=== PATIENT | female | born 1985 | race Caucasian/White ===

== ENCOUNTER 2017-09-19 15:25 | Emergency (ER) | payer OTHER ==
[~2017-09-19 15:25] MED LIST: ALBUAER3 INH; BUSP10TA PO; CETI1TAB PO; CITA40TA4 PO; IMIT100T PO; NAPR500T2 PO; PANT20TA2 PO; PRED20 PO; RANI300T PO; SERO25TA PO; TOPA50TA7 PO; ZAFI1TAB PO
[2017-09-19 15:35] VITALS: BP 126/81; PULSE 98; RESP 20; TEMP 96.5; O2SAT 100
[2017-09-19 15:47] VITALS: BP 126/81; PULSE 98; RESP 18; TEMP 96.5; O2SAT 100
[2017-09-19] MEDS ORDERED: SODIUM CHLOR 0.9% 1000 ML INJ 1,000 ML IV ONE (16:24)
[2017-09-19] MEDS ORDERED: SODIUM CHLORIDE 0.9% FLUSH 10 ML FLUSH IVF PRN (16:30)
[2017-09-19 17:03] VITALS: RESP 18; O2SAT 100
--- NOTE | 2017-09-19 17:13 | RADRPT ---
EXAM DATE/TIME: 09/19/2017 16:53 [place] COMPARISON: No previous studies available for comparison. INDICATIONS : Seizure with dizziness and cephalgia. RADIATION DOSE: 35.45 CTDIvol (mGy) MEDICAL HISTORY : Seizures. Cervical cancer. SURGICAL HISTORY : Hysterectomy. Tubal ligation. ENCOUNTER: Initial ACUITY: 1 day PAIN SCALE: 5/10 LOCATION: cranial TECHNIQUE: Multiple contiguous axial images were obtained of the head. Using automated exposure control and adj ustment of the mA and/or kV according to patient size, radiation dose was kept as low as reasonably a chievable to obtain optimal diagnostic quality images. DICOM format image data is available electro nically for review and comparison. FINDINGS: CEREBRUM: The ventricles are normal for age. No evidence of midline shift, mass lesion, hemorrhage or acute in farction. No extra-axial fluid collections are seen. POSTERIOR FOSSA: The cerebellum and brainstem are intact. The 4th ventricle is midline. The cerebellopontine angle i s unremarkable. EXTRACRANIAL: The visualized portion of the orbits is intact. SKULL: The calvaria is intact. No evidence of skull fracture. CONCLUSION: 1. No acute cardiopulmonary findings. Sorin Treviño MD on September 19, 2017 at 17:11 Board Certified Radiologist. This report was verified electronically.
[2017-09-19] MEDS ORDERED: LORazepam 2 MG/ML VIAL IV PUSH ONE (17:15)
[2017-09-19 17:20] LABS: AUTOMATED NEUTROPHIL # 7.5 TH/MM3 (1.8-7.7); BASOPHIL % 0.2 % (0.0-2.0); EOSINOPHIL % 0.3 % (0.0-4.0); HEMATOCRIT 31.5 % (35.0-46.0); HEMOGLOBIN 9.9 GM/DL (11.6-15.3); LYMPHOCYTE # 0.9 TH/MM3 (1.0-4.8); MEAN CELL VOLUME 77.5 FL (80.0-100.0); MEAN CORPUSCULAR HEMOGLOBIN 24.4 PG (27.0-34.0); MEAN CORPUSCULAR HGB CONC 31.5 % (32.0-36.0); MONO % 4.6 % (0.0-8.0); MONOCYTE # 0.4 TH/MM3 (0-0.9); NEUT % 84.9 % (16.0-70.0); PLATELET COUNT 186 TH/MM3 (150-450); RED BLOOD COUNT 4.06 MIL/MM3 (4.00-5.30); RED CELL DISTRIBUTION WIDTH 17.7 % (11.6-17.2); WHITE BLOOD COUNT 8.9 TH/MM3 (4.0-11.0)
[2017-09-19 17:38] LABS: BACTERIA, URINE RARE /hpf; BILIRUBIN, URINE NEG (NEG); BLOOD, URINE NEG (NEG); GLUCOSE,URINE NEG (NEG); KETONE, URINE NEG (NEG); NITRITE,URINE NEG (NEG); PH, URINE 6.5 (5.0-8.5); SQUAMOUS EPITHELIAL CELL URINE 2 /hpf (0-5); URINE COLOR LIGHT-YELLOW (YELLW/STRAW); URINE LEUKOCYTE ESTERASE NEG (NEG)
[2017-09-19 17:38] LABS: BICARBONATE 20.1 MEQ/L (21.0-32.0); CALCIUM 7.1 MG/DL (8.5-10.1); CALCIUM-PROTEIN CORRECTED 7.8 MG/DL (8.5-10.1); CREATININE 0.42 MG/DL (0.50-1.00); TOTAL BILIRUBIN ADULT 0.1 MG/DL (0.2-1.0); TOTAL PROTEIN 5.7 GM/DL (6.4-8.2)
[2017-09-19] MEDS ORDERED: POTASSIUM CHLORIDE 10 MEQ CONTROLLED RELEASE TAB PO ONE (18:00)
[2017-09-19] MEDS ORDERED: CALCIUM CARBONATE 1.25 GM (CA 500 MG) TAB PO ONE (18:00)
[2017-09-19 18:15] VITALS: BP 116/67; PULSE 86; RESP 18; O2SAT 100
--- NOTE | 2017-09-19 18:48 | PD ---
HPI Chief Complaint: Seizure Time Seen by Provider: 16:07 Travel History International Travel<30 days: No Contact w/Intl Traveler<30days: No Traveled to known affect area: No History of Present Illness HPI Patient is a 32 year old female who comes in after a seizure. She was Sagastume Acted by police after cutting herself and brought to [facility] where she had a seizure during intake. She says she has "stress induced seizures." She has never been on seizure medications. She denies drug or alcohol use. She denies any medical complaints at this time. She denies fever, chills. She says she has a slight headache, but this is normal for her after a seizure. Severity is mild. PFSH Past Medical History Cancer: Yes (ovarian) Chemotherapy: Yes Diminished Hearing: No Headaches: Yes Psychiatric: Yes (PTSD) Seizures: Yes ?: Not Tubal Ligation: Yes Past Surgical History Abdominal Surgery: Yes Hysterectomy: Yes Social History Alcohol Use: No Tobacco Use: No Substance Use: Yes (marijuana) Allergies-Medications (Allergen,Severity, Reaction): Coded Allergies: ibuprofen (Unverified Allergy, Severe, Anaphylaxis, 09/19/17) penicillin G (Unverified Allergy, Severe, Anaphylaxis, 09/19/17) Reported Meds & Prescriptions Reported Meds & Active Scripts Active Citalopram (Citalopram Hydrobromide) 40 Mg Tab 40 Mg PO DAILY Buspirone (Buspirone HCl) 10 Mg Tab 10 Mg PO TID Pantoprazole (Pantoprazole Sodium) 20 Mg Tab 20 Mg PO DAILY Take 30 min before first meal of day for 4 weeks then STOP. Eql All Day Allergy (Cetirizine HCl) 10 Mg Tab 10 Mg PO DAILY 90 Days Take in AM. Prednisone 20 Mg Tab 20 Mg PO DAILY 5 Days Take with food. Proair Hfa 8.5 GM Inh (Albuterol Sulfate) 90 Mcg/Act Aer 2 Puff INH Q4-6H PRN 108 mcg/actuation Zafirlukast 10 Mg Tab 10 Mg PO BIDAC 90 Days Naproxen 500 Mg Tab 500 Mg PO BID PRN Take with food. Do not use daily for long periods due to risk of stomah bleed and kidney/liver failure. Ranitidine (Ranitidine HCl) 300 Mg Tab 1 Tab PO DAILY PRN Seroquel (Quetiapine Fumarate) 25 Mg Tab 25 Mg PO HS PRN Reported Topamax (Topiramate) 50 Mg Tab 50 Mg PO BID Take 1/2 twice daily x 14 days then One twice day Imitrex (Sumatriptan Succinate) 100 Mg Tab 100 Mg PO ONCE PRN If a satisfactory response has not been obtained at 2 hours, a second dose may be administered Review of Systems Except as stated in HPI: all other systems reviewed are Neg General / Constitutional: No: Fever, Chills Eyes: No: Blurred Vision Cardiovascular: No: Chest Pain or Discomfort Respiratory: No: Shortness of Breath Gastrointestinal: No: Nausea, Vomiting Musculoskeletal: No: Myalgias, Edema Skin: Positive Other (abrasion) Neurologic: No: Weakness, Dizziness Physical Exam Narrative GENERAL: Awake and alert, in no acute distress. SKIN: Focused skin assessment warm/dry. Superficial abrasion to the left forearm. HEAD: Atraumatic. Normocephalic. EYES: Pupils equal and round and reactive. No scleral icterus. EOMI. ENT: Mucous membranes pink and moist. NECK: Trachea midline. No JVD. CARDIOVASCULAR: Regular rate and rhythm. No murmur appreciated. RESPIRATORY: No accessory muscle use. Clear to auscultation. Breath sounds equal bilaterally. GASTROINTESTINAL: Abdomen soft, non-tender, nondistended. MUSCULOSKELETAL: No obvious deformities. No clubbing. No cyanosis. No edema. NEUROLOGICAL: Awake and alert. No obvious cranial nerve deficits. Motor grossly within normal limits. Normal speech. PSYCHIATRIC: Appropriate mood and affect; insight and judgment normal. Data Data Last Documented VS Vital Signs Date Time Temp Pulse Resp B/P (MAP) Pulse Ox O2 Delivery O2 Flow Rate FiO2 09/19/17 18:15 86 18 116/67 (83) 100 Room Air 09/19/17 15:47 96.5 Orders Orders Ed Urine Pregnancytest Poc (09/19/17 16:24) Complete Blood Count With Diff (09/19/17 16:24) Comprehensive Metabolic Panel (09/19/17 16:24) Urinalysis - C+S If Indicated (09/19/17 16:24) Ct Brain W/O Iv Contrast(Rout) (09/19/17 16:24) Ecg Monitoring (09/19/17 16:24) Iv Access Insert/Monitor (09/19/17 16:24) Oximetry (09/19/17 16:24) Sodium Chloride 0.9% Flush (Ns Flush) (09/19/17 16:30) Sodium Chlor 0.9% 1000 Ml Inj (Ns 1000 M (09/19/17 16:24) Drug Screen, Random Urine (09/19/17 16:24) Lorazepam Inj (Ativan Inj) (09/19/17 17:15) Psych Screen (09/19/17 17:50) Potassium Chloride (Kcl) (09/19/17 18:00) Calcium Carbonate (Oscal) (09/19/17 18:00) Labs Laboratory Tests Test 09/19/17 16:37 09/19/17 16:52 White Blood Count 8.9 TH/MM3 Red Blood Count 4.06 MIL/MM3 Hemoglobin 9.9 GM/DL Hematocrit 31.5 % Mean Corpuscular Volume 77.5 FL Mean Corpuscular Hemoglobin 24.4 PG Mean Corpuscular Hemoglobin Concent 31.5 % Red Cell Distribution Width 17.7 % Platelet Count 186 TH/MM3 Mean Platelet Volume 8.0 FL Neutrophils (%) (Auto) 84.9 % Lymphocytes (%) (Auto) 10.0 % Monocytes (%) (Auto) 4.6 % Eosinophils (%) (Auto) 0.3 % Basophils (%) (Auto) 0.2 % Neutrophils # (Auto) 7.5 TH/MM3 Lymphocytes # (Auto) 0.9 TH/MM3 Monocytes # (Auto) 0.4 TH/MM3 Eosinophils # (Auto) 0.0 TH/MM3 Basophils # (Auto) 0.0 TH/MM3 CBC Comment DIFF FINAL Differential Comment Blood Urea Nitrogen 7 MG/DL Creatinine 0.42 MG/DL Random Glucose 87 MG/DL Total Protein 5.7 GM/DL Albumin 3.0 GM/DL Calcium Level 7.1 MG/DL Alkaline Phosphatase 68 U/L Aspartate Amino Transf (AST/SGOT) 10 U/L Alanine Aminotransferase (ALT/SGPT) 18 U/L Total Bilirubin 0.1 MG/DL Sodium Level 144 MEQ/L Potassium Level 3.3 MEQ/L Chloride Level 114 MEQ/L Carbon Dioxide Level 20.1 MEQ/L Anion Gap 10 MEQ/L Estimat Glomerular Filtration Rate 173 ML/MIN Protein Corrected Calcium 7.8 MG/DL Urine Color LIGHT-YELLOW Urine Turbidity CLEAR Urine pH 6.5 Urine Specific [place] 1.010 Urine Protein NEG mg/dL Urine Glucose (UA) NEG mg/dL Urine Ketones NEG mg/dL Urine Occult Blood NEG Urine Nitrite NEG Urine Bilirubin NEG Urine Urobilinogen LESS THAN 2.0 MG/DL Urine Leukocyte Esterase NEG Urine RBC LESS THAN 1 /hpf Urine WBC 1 /hpf Urine Squamous Epithelial Cells 2 /hpf Urine Bacteria RARE /hpf Microscopic Urinalysis Comment CULT NOT INDICATED Urine Opiates Screen NEG Urine Barbiturates Screen NEG Urine Amphetamines Screen NEG Urine Benzodiazepines Screen NEG Urine Cocaine Screen NEG Urine Cannabinoids Screen POS MDM Medical Decision Making Medical Screen Exam Complete: Yes Emergency Medical Condition: Yes Medical Record Reviewed: Yes Differential Diagnosis pseudoseizure vs seizure disorder vs withdrawal Narrative Course Patient is a 32 year old female who comes in after a seizure. Patient was given Ativan with cessation of her seizure. Exam shows no neurologic abnormalities. IV established, labs sent. Labs show low K and Calcium, this was replaced. CT head performed shows no acute abnormalities. Last [address] 09/19/17 1624 Signed Impressions: Service Date/Time: Tuesday, September 19, 2017 16:53 - CONCLUSION: 1. No acute cardiopulmonary findings. Sorin Treviño MD The nurse reports the patient had a second seizure, but was speaking with him the other time and she immediately stopped when medication was pushed into her IV. Concern is for pseudoseizure. Patient will be medically cleared for psychiatric evaluation. Diagnosis Primary Impression: Seizure disorder Conchis Johnson MD Sep 19, 2017 18:48
[2017-09-19 19:00] VITALS: BP 125/86; PULSE 102; RESP 16; O2SAT 100
[2017-09-19 21:42] VITALS: BP 109/68; PULSE 80; RESP 16; O2SAT 99
[2017-09-20] MEDS ORDERED: QUEtiapine FUMARATE 25 MG TAB PO ONE (01:00)
[2017-09-20 08:30] VITALS: BP 110/63; PULSE 82; RESP 14; O2SAT 98
[2017-09-20] MEDS ORDERED: TOPIRAMATE 100 MG TAB PO SCH (09:00)
[2017-09-20 13:15] VITALS: BP 126/74; PULSE 101; RESP 20; TEMP 98.7; O2SAT 98
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
--- NOTE | 2017-09-20 15:40 | PD ---
Physical Exam Narrative Patient was seen by medical team and psychiatric team. Data Data Last Documented VS Vital Signs Date Time Temp Pulse Resp B/P (MAP) Pulse Ox O2 Delivery O2 Flow Rate FiO2 09/20/17 15:49 09/20/17 13:15 98.7 101 20 98 Room Air Orders Orders Ed Urine Pregnancytest Poc (09/19/17 16:24) Complete Blood Count With Diff (09/19/17 16:24) Comprehensive Metabolic Panel (09/19/17 16:24) Urinalysis - C+S If Indicated (09/19/17 16:24) Ct Brain W/O Iv Contrast(Rout) (09/19/17 16:24) Ecg Monitoring (09/19/17 16:24) Iv Access Insert/Monitor (09/19/17 16:24) Oximetry (09/19/17 16:24) Sodium Chloride 0.9% Flush (Ns Flush) (09/19/17 16:30) Sodium Chlor 0.9% 1000 Ml Inj (Ns 1000 M (09/19/17 16:24) Drug Screen, Random Urine (09/19/17 16:24) Lorazepam Inj (Ativan Inj) (09/19/17 17:15) Psych Screen (09/19/17 17:50) Potassium Chloride (Kcl) (09/19/17 18:00) Calcium Carbonate (Oscal) (09/19/17 18:00) Topiramate (Topamax) (09/20/17 09:00) Quetiapine (Seroquel) (09/20/17 01:00) Diet Regular Basic (09/20/17 Breakfast) Ed Discharge Order (09/20/17 15:41) Labs Laboratory Tests Test 09/19/17 16:37 09/19/17 16:52 White Blood Count 8.9 TH/MM3 Red Blood Count 4.06 MIL/MM3 Hemoglobin 9.9 GM/DL Hematocrit 31.5 % Mean Corpuscular Volume 77.5 FL Mean Corpuscular Hemoglobin 24.4 PG Mean Corpuscular Hemoglobin Concent 31.5 % Red Cell Distribution Width 17.7 % Platelet Count 186 TH/MM3 Mean Platelet Volume 8.0 FL Neutrophils (%) (Auto) 84.9 % Lymphocytes (%) (Auto) 10.0 % Monocytes (%) (Auto) 4.6 % Eosinophils (%) (Auto) 0.3 % Basophils (%) (Auto) 0.2 % Neutrophils # (Auto) 7.5 TH/MM3 Lymphocytes # (Auto) 0.9 TH/MM3 Monocytes # (Auto) 0.4 TH/MM3 Eosinophils # (Auto) 0.0 TH/MM3 Basophils # (Auto) 0.0 TH/MM3 CBC Comment DIFF FINAL Differential Comment Blood Urea Nitrogen 7 MG/DL Creatinine 0.42 MG/DL Random Glucose 87 MG/DL Total Protein 5.7 GM/DL Albumin 3.0 GM/DL Calcium Level 7.1 MG/DL Alkaline Phosphatase 68 U/L Aspartate Amino Transf (AST/SGOT) 10 U/L Alanine Aminotransferase (ALT/SGPT) 18 U/L Total Bilirubin 0.1 MG/DL Sodium Level 144 MEQ/L Potassium Level 3.3 MEQ/L Chloride Level 114 MEQ/L Carbon Dioxide Level 20.1 MEQ/L Anion Gap 10 MEQ/L Estimat Glomerular Filtration Rate 173 ML/MIN Protein Corrected Calcium 7.8 MG/DL Urine Color LIGHT-YELLOW Urine Turbidity CLEAR Urine pH 6.5 Urine Specific [place] 1.010 Urine Protein NEG mg/dL Urine Glucose (UA) NEG mg/dL Urine Ketones NEG mg/dL Urine Occult Blood NEG Urine Nitrite NEG Urine Bilirubin NEG Urine Urobilinogen LESS THAN 2.0 MG/DL Urine Leukocyte Esterase NEG Urine RBC LESS THAN 1 /hpf Urine WBC 1 /hpf Urine Squamous Epithelial Cells 2 /hpf Urine Bacteria RARE /hpf Microscopic Urinalysis Comment CULT NOT INDICATED Urine Opiates Screen NEG Urine Barbiturates Screen NEG Urine Amphetamines Screen NEG Urine Benzodiazepines Screen NEG Urine Cocaine Screen NEG Urine Cannabinoids Screen POS MDM Supervised Visit with JOHNY: Yes Narrative Course Patient was cleared by medical team yesterday. Patient was cleared by psychiatry today. Patient will be discharged. Diagnosis Primary Impression: Seizure disorder Additional Impression: Adjustment disorder Qualified Codes: F43.20 - Adjustment disorder, unspecified Patient Instructions: General Instructions Additional Instruction: Follow up with local physician. Disposition: 01 DISCHARGE HOME Condition: Stable Hang Ambrose MD Sep 20, 2017 15:40
== END 2017-09-20 15:50 | disposition home or self-care (01) ==
LOC: NEPE 15:25 → NEDAMB 09-20 15:50
DX: G40.909 Epilepsy, unspecified, not intractable, without status epilepticus (principal); F43.20 Adjustment disorder, unspecified; F43.10 Post-traumatic stress disorder, unspecified
CPT/HCPCS: 70450; 80053; 80307; 81001; 84703; 85025; 96361; 96374; 99284; J2060; J7030

== ENCOUNTER 2018-06-11 17:34 | Inpatient (IN) ==
[2018-06-11] MEDS ORDERED: Sod Chloride 0.9% Inj 1,000 ML IV.SIG ONE (19:04)
--- NOTE | 2018-06-11 19:18 | ED ---
HPI General Chief Complaint: Fever Stated Complaint: fever Time Seen by Provider: 06/11/18 18:52 History of Present Illness HPI Narrative: The patient was seen and examined in the presence of the nurse. Her friend called 911. For 1 week she has had a variety of symptoms including fever and bilateral flank pain. She has had runny nose and congestion and productive cough. She denies headache. She is not having abdominal pain or vaginal discharge or. She feels generalized weakness. Current temp 101.6. She denies IV drug use ever. She reports her medical history includes seizure disorder and she is supposed to be on Keppra but is noncompliant. She also has asthma. Symptoms are moderately severe. Duration 1 week. No alleviating factors. No exacerbating factors. Related Data Previous Rx's Medication Instructions Recorded levetiracetam [Keppra] 500 mg PO BID 30 Days #60 tab 05/07/18 prochlorperazine maleate 10 mg PO BID PRN #15 tab 05/07/18 [Compazine] Allergies Allergy/AdvReac Type Severity Reaction Status Date / Time ibuprofen Allergy Severe Anaphylaxis Verified 06/11/18 17:39 penicillin G Allergy Severe Anaphylaxis Verified 06/11/18 17:39 Review of Systems ROS: all other systems reviewed are negative [facility] Social History Social History Substance History: No History of Abuse Second Hand Smoke Exposure: No Smoking Status: Never smoker How Often Do You Have a Drink Containing Alcohol: Never Recent Travel in [facility] within the Last 8 Weeks: No Recent Out of Country Travel within the Last 8 Weeks: No Immunization History Tetanus Immunization: <5 Years Exam Narrative Exam Narrative: GENERAL: Thin drowsy appearing well-developed patient in no apparent distress. SKIN: Focused skin assessment reveals no rash and nodules. Skin is Warm and dry. HEAD: Atraumatic. Normocephalic. EYES: Pupils equal and round. No scleral icterus. No injection or drainage. ENT: No nasal bleeding or discharge. Mucous membranes pink and moist. Oral cavity is clear. No erythema or exudate NECK: Trachea midline. No JVD. No rigidity or stiffness. Kernig's and Brudzinski's sign are negative CARDIOVASCULAR: Regular rate and rhythm. No murmur appreciated. RESPIRATORY: No accessory muscle use. Clear to auscultation. Breath sounds equal bilaterally. GASTROINTESTINAL: Abdomen soft, non-tender, nondistended. Hepatic and splenic margins not palpable. MUSCULOSKELETAL: No obvious deformities. No clubbing. No cyanosis. No edema. Has bilateral CVA tenderness. No midline tenderness of the back. NEUROLOGICAL: Awake and alert. No obvious cranial nerve deficits. Motor grossly within normal limits. Normal speech. PSYCHIATRIC: Appropriate mood and affect; insight and judgment questionable. Course Initial Documented Vital Signs Temperature 99.6 F 06/11/18 17:38 Pulse Rate 122 H 06/11/18 17:38 Respiratory Rate 20 06/11/18 17:38 Blood Pressure 121/77 06/11/18 17:38 Pulse Oximetry 98 06/11/18 17:38 Last Documented Vital Signs Temperature 99.6 F 06/11/18 17:38 Pulse Rate 100 H 06/11/18 22:00 Respiratory Rate 18 06/11/18 22:00 Blood Pressure 114/63 06/11/18 22:00 Pulse Oximetry 96 06/11/18 22:00 Medical Decision Making MDM Narrative Medical decision making narrative: 32-year-old female with fever who appears somewhat lethargic. I have ordered extensive workup to include blood cultures and labs and urine and CT and chest x-ray. I have given her a liter of saline and a dose of Tylenol and 1 g IV Rocephin Catheterized urine shows 134 white cells. Given her fever and bilateral flank pain I suspect she has some pyelonephritis. Patient did have a seizure while here in the department. She did not have any meningeal signs and has noncompliance with her seizure medicines and known epilepsy. She did receive an Ativan dose and I gave her an IV dose of Keppra. I spoke with the medical residents who will admit her for pyelonephritis and uncontrolled seizure disorder. Imaging of brain showed some sinus changes and chest x-ray negative Medical Screen Exam Complete: Yes Emergency Medical Condition: Yes Differential Diagnosis Differential Diagnosis: Pyelonephritis, pneumonia, flu syndrome, sepsis Medical Records Medical records reviewed: Yes I reviewed the patient's medical records. Lab Data Lab results reviewed: Yes I reviewed the patient's lab results. Lab results narrative: Patient has anemia but no leukocytosis Result diagrams: 06/11/18 19:40 06/11/18 19:40 POC Results POC Urine Results Negative Lab Results 06/11/18 06/11/18 06/11/18 Range/Units 19:25 19:40 19:40 WBC 9.2 (4.0-11.0) th/mm3 RBC 4.29 (4.00-5.30) mil/mm3 Hgb 10.0 L (11.6-15.3) gm/dL Hct 32.3 L (35.0-46.0) % MCV 75.3 L (80.0-100.0) fL MCH 23.4 L (27.0-34.0) pg MCHC 31.1 L (32.0-36.0) % RDW 16.9 (11.6-17.2) % Plt Count 192 (150-450) th/mm3 MPV 8.4 (7.0-11.0) fL Neut % (Auto) 78.1 H (16.0-70.0) % Lymph % (Auto) 10.2 (9.0-44.0) % [place] % (Auto) 11.4 H (0.0-8.0) % Eos % (Auto) 0.0 (0.0-4.0) % Baso % (Auto) 0.3 (0.0-2.0) % Neut # (Auto) 7.2 (1.8-7.7) th/mm3 Lymph # (Auto) 0.9 L (1.0-4.8) th/mm3 Crane # (Auto) 1.0 H (0.0-0.9) th/mm3 Eos # (Auto) 0.0 (0.0-0.4) th/mm3 Baso # (Auto) 0.0 (0.0-0.2) th/mm3 WBC Differential . Differential Comment Auto diff final Sodium (136-145) meq/L Potassium (3.5-5.1) meq/L Chloride (98-107) meq/L Carbon Dioxide (21.0-32.0) meq/L Anion Gap (5-15) meq/L BUN (7-18) mg/dL Creatinine (0.50-1.00) mg/dL Estimated GFR (>89) mL/min Random Glucose (74-106) mg/dL Lactic Acid 1.9 (0.4-2.0) mmol/L Calcium (8.5-10.1) mg/dL Total Bilirubin (0.2-1.0) mg/dL AST (15-37) U/L ALT (10-53) U/L Alkaline Phosphatase (45-117) U/L Total Protein (6.4-8.2) g/dL Albumin (3.4-5.0) g/dL Urine Color Yellow (Yellw/Straw) Urine Clarity Cloudy H (Clear) Urine pH 6.0 (5.0-8.5) Ur Specific [place] 1.010 (1.002-1.035) Urine Protein 100 H (Neg-Trace) mg/dL Urine Glucose (UA) Negative (Negative) mg/dL Urine Ketones Negative (Negative) mg/dL Urine Occult Blood Moderate H (Negative) Urine Nitrate Positive H (Negative) Urine Bilirubin Negative (Negative) Urine Urobilinogen 2.0 H (Less than 2) mg/dL Ur Leukocyte Esterase Large H (Negative) Urine RBC 22 H (0-3) /hpf Urine WBC 134 H (0-5) /hpf Ur Squamous Epith Cells 3 (0-5) /hpf Ur Renal Epithelial Cell <1 (None) /hpf Urine Bacteria Many H (None) /hpf Urine Mucus Few H (Occasional) /lpf Micro UA Comment Cath-culture ind Ur Microscopic Review Not Reportable Urine Culture Comments Cath-cult indicated 06/11/18 Range/Units 19:40 WBC (4.0-11.0) th/mm3 RBC (4.00-5.30) mil/mm3 Hgb (11.6-15.3) gm/dL Hct (35.0-46.0) % MCV (80.0-100.0) fL MCH (27.0-34.0) pg MCHC (32.0-36.0) % RDW (11.6-17.2) % Plt Count (150-450) th/mm3 MPV (7.0-11.0) fL Neut % (Auto) (16.0-70.0) % Lymph % (Auto) (9.0-44.0) % Crane % (Auto) (0.0-8.0) % Eos % (Auto) (0.0-4.0) % Baso % (Auto) (0.0-2.0) % Neut # (Auto) (1.8-7.7) th/mm3 Lymph # (Auto) (1.0-4.8) th/mm3 [place]ane # (Auto) (0.0-0.9) th/mm3 Eos # (Auto) (0.0-0.4) th/mm3 Baso # (Auto) (0.0-0.2) th/mm3 WBC Differential Differential Comment Sodium 134 L (136-145) meq/L Potassium 3.7 (3.5-5.1) meq/L Chloride 103 (98-107) meq/L Carbon Dioxide 23.9 (21.0-32.0) meq/L Anion Gap 7 (5-15) meq/L BUN 10 (7-18) mg/dL Creatinine 0.56 (0.50-1.00) mg/dL Estimated GFR Greater than 89 (>89) mL/min Random Glucose 76 (74-106) mg/dL Lactic Acid (0.4-2.0) mmol/L Calcium 8.9 (8.5-10.1) mg/dL Total Bilirubin 0.5 (0.2-1.0) mg/dL AST 47 H (15-37) U/L ALT 75 H (10-53) U/L Alkaline Phosphatase 138 H (45-117) U/L Total Protein 8.0 (6.4-8.2) g/dL Albumin 3.1 L (3.4-5.0) g/dL Urine Color (Yellw/Straw) Urine Clarity (Clear) Urine pH (5.0-8.5) Ur Specific [place] (1.002-1.035) Urine Protein (Neg-Trace) mg/dL Urine Glucose (UA) (Negative) mg/dL Urine Ketones (Negative) mg/dL Urine Occult Blood (Negative) Urine Nitrate (Negative) Urine Bilirubin (Negative) Urine Urobilinogen (Less than 2) mg/dL Ur Leukocyte Esterase (Negative) Urine RBC (0-3) /hpf Urine WBC (0-5) /hpf Ur Squamous Epith Cells (0-5) /hpf Ur Renal Epithelial Cell (None) /hpf Urine Bacteria (None) /hpf Urine Mucus (Occasional) /lpf Micro UA Comment Ur Microscopic Review Urine Culture Comments Imaging Data Attestation: I personally reviewed and interpreted this imaging study as follows : My impression: Chest x-ray normal. CT brain shows sinus changes Radiologist's impression: Head CT 06/11/18 19:04 CONCLUSION: No acute intracranial abnormality. Chronic appearing paranasal sinusitis, worse than before. . Chest X-Ray 06/11/18 19:07 CONCLUSION: Normal one view chest x-ray. Discharge Plan Discharge Disposition Patient Disposition: ED Admit(ED Internal Use Only) Discharge Order Discharge Orders: ED Use Only Admit Order (Routine); Ordered 06/11/18 Ordered By: [facility] ED Provider: Lane [place] Primary Care Provider: UNKNOWN, Other Providers: Yogesh Mejia Rxs /Orders / Referrals /Forms Prescriptions: No Action levetiracetam [Keppra] 500 mg tablet 500 mg PO BID 30 Days Qty: 60 RF: 2 prochlorperazine maleate [Compazine] 10 mg tablet 10 mg PO BID PRN (Reason: headache) Qty: 15 RF: 0 Discharge Interventions Interventions: Vital Signs Last Done: 06/11/18 22:00 Status ED Status: With Doctor
[2018-06-11] MEDS ORDERED: Acetaminophen 325 MG Tablet PO ONE (19:28)
--- NOTE | 2018-06-11 19:42 | XR ---
EXAM DATE: 06/11/2018 7:39 PM EST AGE/SEX: 32 years / Female INDICATIONS: Fever. CLINICAL DATA: This is the patient's initial encounter. Patient reports that signs and symptoms have been present for 1 day and indicates a pain score of 3/10. MEDICAL/SURGICAL HISTORY: . Seizures. Cervical cancer. Hysterectomy. Tubal ligation. COMPARISON: No prior exams available for comparison. FINDINGS: No infiltrate, effusion or pneumothorax. Heart size within normal limits. CONCLUSION: Normal one view chest x-ray. Electronically signed by: Kane Farias MD 06/11/2018 7:41 PM EST
--- NOTE | 2018-06-11 20:08 | CT ---
EXAM DATE: 06/11/2018 8:02 PM EST AGE/SEX: 32 years / Female INDICATIONS: Altered mental status. Fever. CLINICAL DATA: This is the patient's initial encounter. Patient reports that signs and symptoms have been present for 1 week and indicates a pain score of 0/10. MEDICAL/SURGICAL HISTORY: Asthma. Carcinoma, cervical. Seizures. None. RADIATION DOSE: 46.34 CTDI (mGy) COMPARISON: [facility] [place], CT BRAIN W/O CONTRAST, 09/19/2017. . TECHNIQUE: CT of the head without contrast. Using automated exposure control and adjustment of the mA and/or kV according to patient size, radiation dose was kept as low as reasonably achievable to ob tain optimal diagnostic quality images. DICOM format image data is available electronically for revi ew and comparison. FINDINGS: Cerebrum: The ventricles are normal for age. No evidence of midline shift, mass lesion, hemorrhage or acute infarction. No extraaxial fluid collections are seen. Posterior Fossa: The cerebellum and brainstem are intact. The 4th ventricle is midline. The cerebe llopontine angle is unremarkable. Extracranial: There is mucoperiosteal thickening of the visualized paranasal sinuses, especially eth moid and sphenoid. Skull: The calvaria is intact. No evidence of skull fracture. CONCLUSION: No acute intracranial abnormality. Chronic appearing paranasal sinusitis, worse than befo re. . Electronically signed by: Kane Farias MD 06/11/2018 8:06 PM EST
[2018-06-11 20:09] LABS: Baso % (Auto) 0.3 % (0.0-2.0); Hematocrit 32.3 % (35.0-46.0); Lymph # (Auto) 0.9 th/mm3 (1.0-4.8); Lymph % (Auto) 10.2 % (9.0-44.0); Mean Corpuscular HGB Conc 31.1 % (32.0-36.0); Mean Corpuscular Hemoglobin 23.4 pg (27.0-34.0); Mean Corpuscular Volume 75.3 fL (80.0-100.0); Mean Platelet Volume 8.4 fL (7.0-11.0); Mono % (Auto) 11.4 % (0.0-8.0); Neut # (Auto) 7.2 th/mm3 (1.8-7.7); Neut % (Auto) 78.1 % (16.0-70.0); Platelet Count 192 th/mm3 (150-450); Red Blood Count 4.29 mil/mm3 (4.00-5.30); Red Cell Distribution Width 16.9 % (11.6-17.2); White Blood Count 9.2 th/mm3 (4.0-11.0)
[2018-06-11 20:20] LABS: Bacteria,Urine Many /hpf; Bilirubin,Urine Negative (Negative); Clarity,Urine Cloudy (Clear); Color,Urine Yellow (Yellw/Straw); Glucose,Urine (UA) Negative (Negative); Leukocyte Esterase,Urine Large (Negative); Mucus,Urine Few /lpf (Occasional); Nitrite,Urine Positive (Negative); Renal Epithelial Cells,Urine <1 /hpf; Squamous Epithelial Cell,Urine 3 /hpf (0-5)
[2018-06-11 20:24] LABS: Alanine Aminotransferase 75 U/L (10-53); Albumin 3.1 g/dL (3.4-5.0); Anion Gap 7 meq/L (5-15); Aspartate Aminotransferase 47 U/L (15-37); Blood Urea Nitrogen 10 mg/dL (7-18); Calcium 8.9 mg/dL (8.5-10.1); Carbon Dioxide 23.9 meq/L (21.0-32.0); Chloride 103 meq/L (98-107); Glomerular Filtration Rate Greater Than 89 mL/min (>89); Glucose,Random 76 mg/dL (74-106); Potassium 3.7 meq/L (3.5-5.1); Sodium 134 meq/L (136-145)
[2018-06-11 20:27] LABS: Alkaline Phosphatase 138 U/L (45-117)
--- NOTE | 2018-06-11 22:26 | P.HPFP ---
History of Present Illness Primary Care Physician: UNKNOWN <LillianKarla Maik - 06/12/18 13:02> UNKNOWN <FeliciakanJanis sarmiento - 06/11/18 22:26> History of Present Illness: Unable to obtain full HPI due to patient being sedated status post 2 mg of Ativan given for a witnessed seizure in the emergency department. Seizure lasted for about 20 seconds per nurse. Patient is currently postictal. Sister was at bedside, when questioned about patient's health records. Sister states that she is homeless and has been homeless for the past 7-8 months. She started using crack cocaine in January. Unsure of what other drugs she uses. She has not seen in the last 3-4 weeks. She just got a call today saying that she was in the hospital due to to having fever. Her only past medical history that she is aware of is that she has seizures and is on Keppra. Per ED note, had complaints of a fever for 1 week with bilateral flank pain with runny nose and congestion and productive cough. Temp in ED was 101.6. She denied IV drug use and reports not taking her seizure medication for the past couple weeks. She has a past medical history of asthma. <FeliciakanJanis sarmiento - 06/11/18 23:05> - Diagnosis (1) UTI (urinary tract infection) (2) Seizure (3) Elevated alanine aminotransferase (ALT) level (4) Substance abuse (5) DVT prophylaxis (6) Nutrition, metabolism, and development symptoms <Karla Snyder 06/12/18 13:02> (1) UTI (urinary tract infection) (2) Seizure (3) Elevated alanine aminotransferase (ALT) level (4) Substance abuse (5) DVT prophylaxis (6) Nutrition, metabolism, and development symptoms <FeliciakanJanis sarmiento - 06/11/18 23:51> Inpatient Certification: I certify that the inpatient services were ordered in accordance with Medicare regulations governing the order. This includes certification that hospital inpatient services are reasonable and necessary and in the case of services not specified as inpatient-only under 42 CFR 419.22(n), that they are appropriately provided as inpatient services in accordance to with the 2-midnight benchmark under 43 CFR 412.3(e) <Karla Snyder Maik 06/12/18 13:02> Review of Systems unobtainable due to mental status <SammyJanis - 06/11/18 23:05> PMFSH - History History Provided By: Patient <FeliciakanguillerminaJanis - 06/11/18 22:26> - Medical History Medical History: Medical History (Last Reviewed 06/11/18 @ 18:53 by Akila Matos) Asthma Cervical cancer Seizure <Karla Snyder 06/12/18 13:02> Medical History (Last Reviewed 06/11/18 @ 18:53 by Akila Matos) Asthma Cervical cancer Seizure <FeliciapavithraJanis - 06/11/18 22:26> - Surgical History Surgical History: Surgical History (Last Reviewed 06/11/18 @ 18:53 by Akila Matos) History of partial hysterectomy <Karla Snyder 06/12/18 13:02> Surgical History (Last Reviewed 06/11/18 @ 18:53 by Akila Matos) History of partial hysterectomy <Janis Christianson 06/11/18 22:26> - Tobacco History Second Hand Smoke Exposure: No <Janis Christianson - 06/11/18 22:26> Smoking Status: Never smoker <Janis Christianson - 06/11/18 22:26> - Alcohol History How Often Do You Have a Drink Containing Alcohol: Never <Janis Christianson - 09/24 22:26> - Substance Use History Substance History: No History of Abuse <Janis Christianson - 06/11/18 22:26> - Travel History Recent Travel in the [facility] Within the Last 8 Weeks: No <Janis Christianson - 22:26> Recent Travel Out of the Country Within the Last 8 Weeks: No <Janis Christianson - 06/11/18 22:26> - Immunization History Tetanus Immunization: <5 Years <Janis Christianson 06/11/18 22:26> Medications and Allergies Allergies Allergy/AdvReac Type Severity Reaction Status Date / Time ibuprofen Allergy Severe Anaphylaxis Verified 06/11/18 17:39 penicillin G Allergy Severe Anaphylaxis Verified 06/11/18 17:39 <Karla Snyder 06/12/18 13:02> Active Medications: Active Medications Acetaminophen (Tylenol) 650 mg PO Q4H PRN PRN Reason: Temp > 100.4 Acetaminophen/Butalbital/Caffeine (Fioricet 50-325-40) 1 tab PO Q8H PRN PRN Reason: HEADACHE Al Hydroxide/Mg Hydroxide (Milk Of Magnesia Liq) 30 ml PO Q12H PRN PRN Reason: Mild Constipation Bisacodyl (Dulcolax Supp) 10 mg RECTAL DAILY PRN PRN Reason: SEVERE CONSITIPATION Ceftriaxone Sodium 1,000 mg/ (Sodium Chloride) 100 mls @ 200 mls/hr IV.SIG Q24H [facility] Sodium Chloride (Ns Inj) 1,000 mls @ 90 mls/hr IV.CONT .Q11H7M [facility] Last Admin: 06/12/18 10:08 Dose: 90 mls/hr Lactulose (Lactulose Liq) 30 ml PO DAILY PRN PRN Reason: SEVERE CONSITIPATION Levetiracetam (Keppra) 500 mg PO BID [facility] Last Admin: 06/12/18 10:04 Dose: 500 mg Levetiracetam (Keppra) 500 mg PO BID [facility] Last Admin: 06/12/18 10:05 Dose: Not Given Lorazepam (Ativan Inj) 2 mg IV.PUSH Q10M PRN PRN Reason: SEE LABEL COMMENTS Ondansetron HCl (Zofran Inj) 4 mg IV.PUSH Q6H PRN PRN Reason: NAUSEA OR VOMITING Senna/Docusate Sodium (Justyna-Colace) 1 tab PO BID [facility] Last Admin: 06/12/18 10:07 Dose: 1 tab Sennosides (Senokot) 17.2 mg PO Q12H PRN PRN Reason: Moderate Constipation Sodium Chloride (Ns Flush) 2 ml IV.FLUSH BID [facility] Last Admin: 06/12/18 10:05 Dose: 2 ml Sodium Chloride (Ns Flush) 2 ml IV.FLUSH PRN PRN PRN Reason: FLUSH AFTER USING IV ACCESS <Karla Snyder - 06/12/18 13:02> Active Medications Levetiracetam 500 mg/ Sodium (Chloride) 105 mls @ 400 mls/hr IV.SIG ONCE ONE Stop: 06/11/18 22:33 Sodium Chloride (Ns Flush) 2 ml IV.FLUSH PRN PRN PRN Reason: FLUSH AFTER USING IV ACCESS <Janis Christianson - 06/11/18 22:26> Exam Vital signs: Vital Signs 06/11/18 17:38 06/11/18 18:55 06/11/18 19:31 Temperature 99.6 F Pulse Rate 122 H 106 H 106 H Respiratory Rate 20 19 20 Blood Pressure 121/77 132/77 124/67 Pulse Oximetry 98 100 98 06/11/18 22:00 06/12/18 04:05 06/12/18 06:29 Temperature Pulse Rate 100 H 100 H 98 H Respiratory Rate 18 20 20 Blood Pressure 114/63 111/65 112/66 Pulse Oximetry 96 96 06/12/18 07:52 06/12/18 09:00 06/12/18 11:57 Temperature 97.2 F L 98.0 F Pulse Rate 98 H 73 Respiratory Rate 18 Blood Pressure 104/81 118/78 Pulse Oximetry 98 98 98 06/12/18 12:29 Temperature Pulse Rate 74 Respiratory Rate 16 Blood Pressure 134/78 Pulse Oximetry Intake & Output 06/11/18 06/12/18 06/12/18 18:59 06:59 18:59 Intake Total 1205 / 1205 1000 / 1000 Balance 1205 / 1205 1000 / 1000 Weight 52.163 kg Intake: IV 1205 / 1205 1000 / 1000 NS Inj 1,000 ML @ 90 mls/hr IV. 1000 / 1000 CONT .Q11H7M [facility] Rx#:[id number] NS Inj 1,000 ML @ Wide Open IV. 1000 / 1000 SIG BOLUS ONE Rx#:[id number] Rocephin Inj 1,000 MG In NS Inj 100 / 100 100 ML @ 200 mls/hr IV.SIG ONCE ONE Rx#:[id number] Keppra Inj 500 MG In NS Inj 100 105 / 105 ML @ 400 mls/hr IV.SIG ONCE ONE Rx#:[id number] <Karla Snyder R - 06/12/18 13:02> Vital Signs 06/11/18 17:38 06/11/18 18:55 06/11/18 19:31 Temperature 99.6 F Pulse Rate 122 H 106 H 106 H Respiratory Rate 20 19 20 Blood Pressure 121/77 132/77 124/67 Pulse Oximetry 98 100 98 Intake & Output 06/11/18 06/11/18 06/12/18 06:59 18:59 06:59 Intake Total 1100 / 1100 Balance 1100 / 1100 Weight 52.163 kg Intake: IV 1100 / 1100 NS Inj 1,000 ML @ Wide Open IV. 1000 / 1000 SIG BOLUS ONE Rx#:[id number] Rocephin Inj 1,000 MG In NS Inj 100 / 100 100 ML @ 200 mls/hr IV.SIG ONCE ONE Rx#:[id number] <Janis Christianson - 06/11/18 22:26> Narrative: GENERAL: Cachectic appearing female, sedated, laying in bed, awakens to verbal commands but then returns to being sedated. In no acute distress. SKIN: Warm and dry. HEAD: Normocephalic. EYES: No scleral icterus. No injection or drainage. NECK: Supple, trachea midline. No JVD or lymphadenopathy. CARDIOVASCULAR: Tachycardic, Regular rhythm without murmurs, gallops, or rubs. RESPIRATORY: Anterior auscultation. Breath sounds equal bilaterally. No accessory muscle use. GASTROINTESTINAL: Abdomen soft, non-tender, nondistended. MUSCULOSKELETAL: No cyanosis, or edema. <FeliciakanNikolay sarmientoJanis - 06/11/18 23:05> Results - Labs Result diagrams: 06/12/18 05:58 06/12/18 05:58 <Kalra Snyder - 06/12/18 13:02> Abnormal lab results 06/11/18 06/11/18 06/11/18 Range/Units 19:25 19:25 19:40 RBC (4.00-5.30) mil/mm3 Hgb 10.0 L (11.6-15.3) gm/dL Hct 32.3 L (35.0-46.0) % MCV 75.3 L (80.0-100.0) fL MCH 23.4 L (27.0-34.0) pg MCHC 31.1 L (32.0-36.0) % Neut % (Auto) 78.1 H (16.0-70.0) % [place] % (Auto) 11.4 H (0.0-8.0) % Lymph # (Auto) 0.9 L (1.0-4.8) th/mm3 [place] # (Auto) 1.0 H (0.0-0.9) th/mm3 Seg Neuts % (Manual) (16-70) % Sodium (136-145) meq/L Potassium (3.5-5.1) meq/L Calcium (8.5-10.1) mg/dL AST (15-37) U/L ALT (10-53) U/L Alkaline Phosphatase (45-117) U/L Albumin (3.4-5.0) g/dL Urine Clarity Cloudy H (Clear) Urine Protein 100 H (Neg-Trace) mg/dL Urine Occult Blood Moderate H (Negative) Urine Nitrate Positive H (Negative) Urine Urobilinogen 2.0 H (Less than 2) mg/dL Ur Leukocyte Esterase Large H (Negative) Urine RBC 22 H (0-3) /hpf Urine WBC 134 H (0-5) /hpf Urine Bacteria Many H (None) /hpf Urine Mucus Few H (Occasional) /lpf Urine Cocaine Screen Pos H (Neg) 06/11/18 06/12/18 06/12/18 Range/Units 19:40 05:58 05:58 RBC 3.40 L (4.00-5.30) mil/mm3 Hgb 8.1 L (11.6-15.3) gm/dL Hct 25.8 L (35.0-46.0) % MCV 75.7 L (80.0-100.0) fL MCH 23.7 L (27.0-34.0) pg MCHC 31.4 L (32.0-36.0) % Neut % (Auto) (16.0-70.0) % [place] % (Auto) (0.0-8.0) % Lymph # (Auto) (1.0-4.8) th/mm3 [place] # (Auto) (0.0-0.9) th/mm3 Seg Neuts % (Manual) 80 H (16-70) % Sodium 134 L (136-145) meq/L Potassium 3.3 L (3.5-5.1) meq/L Calcium 7.6 L D (8.5-10.1) mg/dL AST 47 H (15-37) U/L ALT 75 H (10-53) U/L Alkaline Phosphatase 138 H (45-117) U/L Albumin 3.1 L 2.4 L D (3.4-5.0) g/dL Urine Clarity (Clear) Urine Protein (Neg-Trace) mg/dL Urine Occult Blood (Negative) Urine Nitrate (Negative) Urine Urobilinogen (Less than 2) mg/dL Ur Leukocyte Esterase (Negative) Urine RBC (0-3) /hpf Urine WBC (0-5) /hpf Urine Bacteria (None) /hpf Urine Mucus (Occasional) /lpf Urine Cocaine Screen (Neg) Short CBC 06/11/18 06/12/18 Range/Units 19:40 05:58 WBC 9.2 6.7 (4.0-11.0) th/mm3 Hgb 10.0 L 8.1 L (11.6-15.3) gm/dL Hct 32.3 L 25.8 L (35.0-46.0) % Plt Count 192 152 (150-450) th/mm3 BMP 06/11/18 06/12/18 19:40 05:58 Sodium 134 L 140 Potassium 3.7 3.3 L Chloride 103 106 Carbon Dioxide 23.9 24.2 BUN 10 8 Creatinine 0.56 0.54 Calcium 8.9 7.6 L D Liver Function 06/11/18 06/12/18 Range/Units 19:40 05:58 Total Bilirubin 0.5 0.4 (0.2-1.0) mg/dL AST 47 H 24 (15-37) U/L ALT 75 H 48 (10-53) U/L Alkaline Phosphatase 138 H 116 (45-117) U/L Albumin 3.1 L 2.4 L D (3.4-5.0) g/dL Urine 06/11/18 Range/Units 19:25 Urine Color Yellow (Yellw/Straw) Urine Clarity Cloudy H (Clear) Urine pH 6.0 (5.0-8.5) Ur Specific [place] 1.010 (1.002-1.035) Urine Protein 100 H (Neg-Trace) mg/dL Urine Glucose (UA) Negative (Negative) mg/dL <Karla Snyder - 06/12/18 13:02> Abnormal lab results 06/11/18 06/11/18 06/11/18 Range/Units 19:25 19:40 19:40 Hgb 10.0 L (11.6-15.3) gm/dL Hct 32.3 L (35.0-46.0) % MCV 75.3 L (80.0-100.0) fL MCH 23.4 L (27.0-34.0) pg MCHC 31.1 L (32.0-36.0) % Neut % (Auto) 78.1 H (16.0-70.0) % [place] % (Auto) 11.4 H (0.0-8.0) % Lymph # (Auto) 0.9 L (1.0-4.8) th/mm3 [place] # (Auto) 1.0 H (0.0-0.9) th/mm3 Sodium 134 L (136-145) meq/L AST 47 H (15-37) U/L ALT 75 H (10-53) U/L Alkaline Phosphatase 138 H (45-117) U/L Albumin 3.1 L (3.4-5.0) g/dL Urine Clarity Cloudy H (Clear) Urine Protein 100 H (Neg-Trace) mg/dL Urine Occult Blood Moderate H (Negative) Urine Nitrate Positive H (Negative) Urine Urobilinogen 2.0 H (Less than 2) mg/dL Ur Leukocyte Esterase Large H (Negative) Urine RBC 22 H (0-3) /hpf Urine WBC 134 H (0-5) /hpf Urine Bacteria Many H (None) /hpf Urine Mucus Few H (Occasional) /lpf Short CBC 06/11/18 Range/Units 19:40 WBC 9.2 (4.0-11.0) th/mm3 Hgb 10.0 L (11.6-15.3) gm/dL Hct 32.3 L (35.0-46.0) % Plt Count 192 (150-450) th/mm3 BMP 06/11/18 19:40 Sodium 134 L Potassium 3.7 Chloride 103 Carbon Dioxide 23.9 BUN 10 Creatinine 0.56 Calcium 8.9 Liver Function 06/11/18 Range/Units 19:40 Total Bilirubin 0.5 (0.2-1.0) mg/dL AST 47 H (15-37) U/L ALT 75 H (10-53) U/L Alkaline Phosphatase 138 H (45-117) U/L Albumin 3.1 L (3.4-5.0) g/dL Urine 06/11/18 Range/Units 19:25 Urine Color Yellow (Yellw/Straw) Urine Clarity Cloudy H (Clear) Urine pH 6.0 (5.0-8.5) Ur Specific [place] 1.010 (1.002-1.035) Urine Protein 100 H (Neg-Trace) mg/dL Urine Glucose (UA) Negative (Negative) mg/dL <Janis Christianson - 06/11/18 22:26> - Imaging Impressions Head CT 06/11/18 19:04 CONCLUSION: No acute intracranial abnormality. Chronic appearing paranasal sinusitis, worse than before. . Chest X-Ray 06/11/18 19:07 CONCLUSION: Normal one view chest x-ray. Chest X-Ray 06/12/18 10:14 CONCLUSION: No acute cardiopulmonary process. <Karla Snyder - 06/12/18 13:02> Impressions Head CT 06/11/18 19:04 CONCLUSION: No acute intracranial abnormality. Chronic appearing paranasal sinusitis, worse than before. . Chest X-Ray 06/11/18 19:07 CONCLUSION: Normal one view chest x-ray. <Janis Christianson - 06/11/18 22:26> Caprini VTE Risk Assessment Caprini VTE Risk Assessment: No/Low Risk (score <= 1) <Janis Christianson - 23:05> Caprini Risk Assessment Model: Point Value = 1 Point Value = 2 Point Value = 3 Point Value = 5 Age 41-60 Minor surgery BMI > 25 kg/m2 Swollen legs Varicose veins or History of unexplained or recurrent spontaneous Oral contraceptives or hormone replacement Sepsis (< 1 month) Serious lung disease, including pneumonia (< 1 month) Abnormal pulmonary function Acute myocardial infarction Congestive heart failure (< 1 month) History of inflammatory bowel disease Medical patient at bed rest Age 61-74 Arthroscopic surgery Major open surgery (> 45 min) Laparoscopic surgery (> 45 min) Malignancy Confined to bed (> 72 hours) Immobilizing plaster cast Central venous access Age >= 75 History of VTE Family history of VTE Factor V Leiden Prothrombin [id number] Lupus anticoagulant Anticardiolipin antibodies Elevated serum homocysteine Heparin-induced thrombocytopenia Other congenital or acquired thrombophilia Stroke (< 1 month) Elective arthroplasty Hip, pelvis, or leg fracture Acute spinal cord injury (< 1 month) <Karla Snyder/04/18 13:02> Point Value = 1 Point Value = 2 Point Value = 3 Point Value = 5 Age 41-60 Minor surgery BMI > 25 kg/m2 Swollen legs Varicose veins or History of unexplained or recurrent spontaneous Oral contraceptives or hormone replacement Sepsis (< 1 month) Serious lung disease, including pneumonia (< 1 month) Abnormal pulmonary function Acute myocardial infarction Congestive heart failure (< 1 month) History of inflammatory bowel disease Medical patient at bed rest Age 61-74 Arthroscopic surgery Major open surgery (> 45 min) Laparoscopic surgery (> 45 min) Malignancy Confined to bed (> 72 hours) Immobilizing plaster cast Central venous access Age >= 75 History of VTE Family history of VTE Factor V Leiden Prothrombin [id number] Lupus anticoagulant Anticardiolipin antibodies Elevated serum homocysteine Heparin-induced thrombocytopenia Other congenital or acquired thrombophilia Stroke (< 1 month) Elective arthroplasty Hip, pelvis, or leg fracture Acute spinal cord injury (< 1 month) <Janis Christianson - 06/11/18 22:26> Prophylaxis Regimen: Total Risk Factor Score Risk Level Prophylaxis Regimen 0-1 Low Early ambulation 2 Moderate Order ONE of the following: *Sequential Compression Device (SCD) *Heparin 5000 units SQ BID 3-4 Higher Order ONE of the following medications: *Heparin 5000 units SQ TID *Enoxaparin/Lovenox 40 mg SQ daily (WT < 150 kg, CrCl > 30 mL/min) *Enoxaparin/Lovenox 30 mg SQ daily (WT < 150 kg, CrCl > 10-29 mL/min) *Enoxaparin/Lovenox 30 mg SQ BID (WT < 150 kg, CrCl > 30 mL/min) AND/OR *Sequential Compression Device (SCD) 5 or more Highest Order ONE of the following medications: *Heparin 5000 units SQ TID (Preferred with Epidurals) *Enoxaparin/Lovenox 40 mg SQ daily (WT < 150 kg, CrCl > 30 mL/min) *Enoxaparin/Lovenox 30 mg SQ daily (WT < 150 kg, CrCl > 10-29 mL/min) *Enoxaparin/Lovenox 30 mg SQ BID (WT < 150 kg, CrCl > 30 mL/min) AND *Sequential Compression Device (SCD) <Karla Snyder - 06/12/18 13:02> Total Risk Factor Score Risk Level Prophylaxis Regimen 0-1 Low Early ambulation 2 Moderate Order ONE of the following: *Sequential Compression Device (SCD) *Heparin 5000 units SQ BID 3-4 Higher Order ONE of the following medications: *Heparin 5000 units SQ TID *Enoxaparin/Lovenox 40 mg SQ daily (WT < 150 kg, CrCl > 30 mL/min) *Enoxaparin/Lovenox 30 mg SQ daily (WT < 150 kg, CrCl > 10-29 mL/min) *Enoxaparin/Lovenox 30 mg SQ BID (WT < 150 kg, CrCl > 30 mL/min) AND/OR *Sequential Compression Device (SCD) 5 or more Highest Order ONE of the following medications: *Heparin 5000 units SQ TID (Preferred with Epidurals) *Enoxaparin/Lovenox 40 mg SQ daily (WT < 150 kg, CrCl > 30 mL/min) *Enoxaparin/Lovenox 30 mg SQ daily (WT < 150 kg, CrCl > 10-29 mL/min) *Enoxaparin/Lovenox 30 mg SQ BID (WT < 150 kg, CrCl > 30 mL/min) AND *Sequential Compression Device (SCD) <Janis Christianson - 06/11/18 22:26> Assessment and Plan - Assessment (1) UTI (urinary tract infection) Code(s): N39.0 - Urinary tract infection, site not specified Status: Acute (2) Seizure Code(s): R56.9 - Unspecified convulsions Status: Acute (3) Elevated alanine aminotransferase (ALT) level Code(s): R74.0 - Nonspecific elevation of levels of transaminase and lactic acid dehydrogenase [LDH] Status: Acute (4) Substance abuse Code(s): F19.10 - Other psychoactive substance abuse, uncomplicated Status: Acute (5) DVT prophylaxis Status: Acute (6) Nutrition, metabolism, and development symptoms Code(s): R63.8 - Other symptoms and signs concerning food and fluid intake Status: Acute <Karla Snyder - 06/12/18 13:02> (1) UTI (urinary tract infection) Code(s): N39.0 - Urinary tract infection, site not specified Status: Acute Plan: Per ED note, 1 week of fevers and bilateral flank pain. UA positive for Nitrites and large amounts of leukocyte esterase with high WBC. Concerning for UTI versus pyelonephritis. Urine culture pending. Follow-up. 1 g of ceftriaxone given in the ED. Patient allergic to penicillin G, anaphylaxis reaction. Concerning for interaction with ceftriaxone. Received 1g in ED. Well Tolerated. Continue with 1 gram ceftriaxone daily. (2) Seizure Code(s): R56.9 - Unspecified convulsions Status: Acute Plan: Patient has history of seizures on Keppra 500 mg twice daily. Patient noncompliant on medication for the past couple weeks. Witnessed seizure in the emergency room today. Given 2 milligrams of Ativan and is currently post ictal. Neurology consulted. Appreciate recommendations. EEG ordered. Follow-up. Resume home Keppra 500 mg p.o. twice daily. 1000 mg keppra given in ED. Neurochecks every 4. Seizure precautions added. (3) Elevated alanine aminotransferase (ALT) level Code(s): R74.0 - Nonspecific elevation of levels of transaminase and lactic acid dehydrogenase [LDH] Status: Acute Plan: Elevated AST at 47 and elevated ALT at 75. Continue to monitor. (4) Substance abuse Code(s): F19.10 - Other psychoactive substance abuse, uncomplicated Status: Acute Plan: History of substance abuse. UDS ordered. Follow-up. Continue to monitor for signs of withdrawal. (5) DVT prophylaxis Status: Acute Plan: SCDs (6) Nutrition, metabolism, and development symptoms Code(s): R63.8 - Other symptoms and signs concerning food and fluid intake Status: Acute Plan: Fluids: maintenance fluids NS at 90 mls/hour Electrolytes: Monitor and replete as needed. Nutrition: Regular diet. <Janis Christianson - 06/11/18 23:51> - Assessment and Plan 32-year-old with past medical history of seizures presents the emergency room for 1 week of fever, chills and bilateral flank pain. Urine culture positive for large leukocyte esterase and high WBCs concerning for pyelonephritis. Patient had a witnessed seizure in the emergency room for 20 seconds and was given 2 mg of Ativan. Patient admitted for pyelonephritis and seizure workup. <Janis Christianson - 06/11/18 23:51> Discussed Condition With: Eko <Janis Christianson - 06/11/18 23:05> - Attending Attestation Patient discussed with the resident team. Agree with the admission and the assessment and plan as written <Karla Snyder - 06/12/18 13:02>
[2018-06-11] MEDS ORDERED: Bisacodyl 10 MG Supp RECTAL PRN (22:49)
[2018-06-11] MEDS ORDERED: Acetaminophen 325 MG Tablet PO PRN (22:49)
[2018-06-12] MEDS: Sod Chloride 0.9% Inj 1,000 ML IV.CONT SCH ×3 (00:13→20:58)
[2018-06-12 01:07] LABS: Amphetamine Screen,Urine Neg (Neg); Barbiturate Screen,Urine Neg (Neg); Cannabinoid Screen,Urine Neg (Neg); Cocaine Screen,Urine Pos (Neg)
[2018-06-12 01:09] LABS: Opiate Screen,Urine Neg (Neg)
[2018-06-12 07:47] LABS: Hematocrit 25.8 % (35.0-46.0); Hemoglobin 8.1 gm/dL (11.6-15.3); Mean Corpuscular HGB Conc 31.4 % (32.0-36.0); Mean Corpuscular Hemoglobin 23.7 pg (27.0-34.0); Mean Corpuscular Volume 75.7 fL (80.0-100.0); Mean Platelet Volume 8.4 fL (7.0-11.0); Platelet Count 152 th/mm3 (150-450); White Blood Count 6.7 th/mm3 (4.0-11.0)
--- NOTE | 2018-06-12 08:15 | P.CONNEU ---
History of Present Illness Service: Neurology Primary Care Provider: UNKNOWN Chief Complaint: Seizure History of Present Illness: 32-year-old female admitted for fevers, headaches, seizure, and flank pain. Note of urinary tract infection. Patient states she has never had a seizure before but looking at the chart she apparently supposed to be a Keppra may have had seizures before. I asked if she took any illicit drugs she denies this. When asked her about her positive urine drug screen for cocaine she stated it may have been given to her unknowingly. Review of Systems All other systems reviewed negative except as stated in HPI PMFSH - History History Provided By: Patient - Medical History Medical History: Medical History (Last Reviewed 06/11/18 @ 18:53 by Akila Matos) Asthma Cervical cancer Seizure - Surgical History Surgical History: Surgical History (Last Reviewed 06/11/18 @ 18:53 by Akila Matos) History of partial hysterectomy - Tobacco History Second Hand Smoke Exposure: No Smoking Status: Never smoker - Alcohol History How Often Do You Have a Drink Containing Alcohol: Never - Substance Use History Substance History: No History of Abuse - Travel History Recent Travel in the [place] Within the Last 8 Weeks: No Recent Travel Out of the Country Within the Last 8 Weeks: No - Immunization History Tetanus Immunization: <5 Years Medications and Allergies Active Medications: Active Medications Acetaminophen (Tylenol) 650 mg PO Q4H PRN PRN Reason: Temp > 100.4 Al Hydroxide/Mg Hydroxide (Milk Of Magnesia Liq) 30 ml PO Q12H PRN PRN Reason: Mild Constipation Bisacodyl (Dulcolax Supp) 10 mg RECTAL DAILY PRN PRN Reason: SEVERE CONSITIPATION Ceftriaxone Sodium 1,000 mg/ (Sodium Chloride) 100 mls @ 200 mls/hr IV.SIG Q24H MERLE Sodium Chloride (Ns Inj) 1,000 mls @ 90 mls/hr IV.CONT .Q11H7M MERLE Last Admin: 06/12/18 00:13 Dose: 90 mls/hr Lactulose (Lactulose Liq) 30 ml PO DAILY PRN PRN Reason: SEVERE CONSITIPATION Levetiracetam (Keppra) 500 mg PO BID MERLE Lorazepam (Ativan Inj) 2 mg IV.PUSH Q10M PRN PRN Reason: SEE LABEL COMMENTS Ondansetron HCl (Zofran Inj) 4 mg IV.PUSH Q6H PRN PRN Reason: NAUSEA OR VOMITING Senna/Docusate Sodium (Justyna-Colace) 1 tab PO BID MERLE Sennosides (Senokot) 17.2 mg PO Q12H PRN PRN Reason: Moderate Constipation Sodium Chloride (Ns Flush) 2 ml IV.FLUSH BID MERLE Sodium Chloride (Ns Flush) 2 ml IV.FLUSH PRN PRN PRN Reason: FLUSH AFTER USING IV ACCESS Allergies Allergy/AdvReac Type Severity Reaction Status Date / Time ibuprofen Allergy Severe Anaphylaxis Verified 06/11/18 17:39 penicillin G Allergy Severe Anaphylaxis Verified 06/11/18 17:39 Exam Vital signs: Vital Signs 06/11/18 17:38 06/11/18 18:55 06/11/18 19:31 Temperature 99.6 F Pulse Rate 122 H 106 H 106 H Respiratory Rate 20 19 20 Blood Pressure 121/77 132/77 124/67 Pulse Oximetry 98 100 98 06/11/18 22:00 06/12/18 04:05 06/12/18 06:29 Temperature Pulse Rate 100 H 100 H 98 H Respiratory Rate 18 20 20 Blood Pressure 114/63 111/65 112/66 Pulse Oximetry 96 96 06/12/18 07:52 Temperature 97.2 F L Pulse Rate 98 H Respiratory Rate 18 Blood Pressure 104/81 Pulse Oximetry 98 Intake & Output 06/11/18 06/12/18 06/12/18 18:59 06:59 18:59 Intake Total 1205 / 1205 Balance 1205 / 1205 Weight 52.163 kg Intake: IV 1205 / 1205 NS Inj 1,000 ML @ Wide Open IV. 1000 / 1000 SIG BOLUS ONE Rx#:[id number] Rocephin Inj 1,000 MG In NS Inj 100 / 100 100 ML @ 200 mls/hr IV.SIG ONCE ONE Rx#:[id number] Keppra Inj 500 MG In NS Inj 100 105 / 105 ML @ 400 mls/hr IV.SIG ONCE ONE Rx#:[id number] Narrative: Patient resting arousable poor eye contact resist pupillary exam, articulate oriented x3 no aphasia, neck appears supple no facial asymmetry states she feels weak all over initially did not lift her arm or leg with encouragement she was able lift her all 4 extremities to gravity reflexes symmetric. Further sensory cerebellar gait testing limited due to level weakness and patient cooperation Results - Labs CBC & Chem 7: 06/12/18 05:58 06/12/18 05:58 Labs: Laboratory Results - last 24 hr 06/11/18 06/11/18 06/11/18 19:25 19:25 19:40 WBC RBC Hgb Hct MCV MCH MCHC RDW Plt Count MPV Prelim Diff (Auto) Neut % (Auto) Lymph % (Auto) [place] % (Auto) Eos % (Auto) Baso % (Auto) Neut # (Auto) Lymph # (Auto) [place] # (Auto) Eos # (Auto) Baso # (Auto) WBC Differential Differential Comment Sodium Potassium Chloride Carbon Dioxide Anion Gap BUN Creatinine Estimated GFR Random Glucose Lactic Acid 1.9 Calcium Total Bilirubin AST ALT Alkaline Phosphatase Total Protein Albumin Urine Color Yellow Urine Clarity Cloudy H Urine pH 6.0 Ur Specific [place] 1.010 Urine Protein 100 H Urine Glucose (UA) Negative Urine Ketones Negative Urine Occult Blood Moderate H Urine Nitrate Positive H Urine Bilirubin Negative Urine Urobilinogen 2.0 H Ur Leukocyte Esterase Large H Urine RBC 22 H Urine WBC 134 H Ur Squamous Epith Cells 3 Ur Renal Epithelial Cell <1 Urine Bacteria Many H Urine Mucus Few H Micro UA Comment Cath-culture ind Ur Microscopic Review Not Reportable Urine Culture Comments Cath-cult indicated Urine Opiates Screen Neg Ur Barbiturates Screen Neg Ur Amphetamines Screen Neg U Benzodiazepines Scrn Neg Urine Cocaine Screen Pos H U Cannabinoids Screen Neg 06/11/18 06/11/18 06/12/18 19:40 19:40 05:58 WBC 9.2 6.7 RBC 4.29 3.40 L Hgb 10.0 L 8.1 L Hct 32.3 L 25.8 L MCV 75.3 L 75.7 L MCH 23.4 L 23.7 L MCHC 31.1 L 31.4 L RDW 16.9 17.0 Plt Count 192 152 MPV 8.4 8.4 Prelim Diff (Auto) Manual diff required Neut % (Auto) 78.1 H Lymph % (Auto) 10.2 [place] % (Auto) 11.4 H Eos % (Auto) 0.0 Baso % (Auto) 0.3 Neut # (Auto) 7.2 Lymph # (Auto) 0.9 L [place] # (Auto) 1.0 H Eos # (Auto) 0.0 Baso # (Auto) 0.0 WBC Differential . Differential Comment Auto diff final . Sodium 134 L Potassium 3.7 Chloride 103 Carbon Dioxide 23.9 Anion Gap 7 BUN 10 Creatinine 0.56 Estimated GFR Greater than 89 Random Glucose 76 Lactic Acid Calcium 8.9 Total Bilirubin 0.5 AST 47 H ALT 75 H Alkaline Phosphatase 138 H Total Protein 8.0 Albumin 3.1 L Urine Color Urine Clarity Urine pH Ur Specific [place] Urine Protein Urine Glucose (UA) Urine Ketones Urine Occult Blood Urine Nitrate Urine Bilirubin Urine Urobilinogen Ur Leukocyte Esterase Urine RBC Urine WBC Ur Squamous Epith Cells Ur Renal Epithelial Cell Urine Bacteria Urine Mucus Micro UA Comment Ur Microscopic Review Urine Culture Comments Urine Opiates Screen Ur Barbiturates Screen Ur Amphetamines Screen U Benzodiazepines Scrn Urine Cocaine Screen U Cannabinoids Screen - Imaging Impressions Head CT 06/11/18 19:04 CONCLUSION: No acute intracranial abnormality. Chronic appearing paranasal sinusitis, worse than before. . Chest X-Ray 06/11/18 19:07 CONCLUSION: Normal one view chest x-ray. Review/Management - Diagnosis (1) Cocaine abuse Code(s): F14.10 - Cocaine abuse, uncomplicated Status: Acute Current Visit: Yes (2) Seizure Code(s): R56.9 - Unspecified convulsions Status: Acute Current Visit: Yes (3) UTI (urinary tract infection) Code(s): N39.0 - Urinary tract infection, site not specified Status: Acute Current Visit: Yes - Review/Management Plan: Seizure likely caused by cocaine and fever Headache and weakness which I suspect is related to the UTI possibly viral infection. The meningitis a possibility think lesser likely Recommendation EEG MRI brain She can resume Keppra Being treated with IV antibiotics per medical service Pain control per medical service If symptoms fever persist consider infectious disease evaluation No driving, operating any heavy machinery or dangerous machinery, swimming alone for at least 6 months of being seizure, spell free. Stop illicit drug use
[2018-06-12 08:17] LABS: Alanine Aminotransferase 48 U/L (10-53); Albumin 2.4 g/dL (3.4-5.0); Alkaline Phosphatase 116 U/L (45-117); Anion Gap 10 meq/L (5-15); Aspartate Aminotransferase 24 U/L (15-37); Blood Urea Nitrogen 8 mg/dL (7-18); Calcium 7.6 mg/dL (8.5-10.1); Carbon Dioxide 24.2 meq/L (21.0-32.0); Chloride 106 meq/L (98-107); Glomerular Filtration Rate Greater Than 89 mL/min (>89); Glucose,Random 76 mg/dL (74-106); Potassium 3.3 meq/L (3.5-5.1); Sodium 140 meq/L (136-145); Total Protein 6.5 g/dL (6.4-8.2)
[2018-06-12 08:26] LABS: Lymphocytes 10 % (9-44); Monocytes 7 % (0-8)
[2018-06-12 08:27] LABS: Platelet Estimate Normal (Normal); Platelet Morphology Normal (Normal)
[2018-06-12] MEDS ORDERED: Butalbital/APAP/Caff 50/325/40 MG Tablet PO PRN (08:51)
[2018-06-12] MEDS: levETIRAcetam 500 MG Tablet PO SCH ×4 (10:04→20:59)
[2018-06-12] MEDS: Senna/Docusate Sodium 8.6/50 MG Tablet PO SCH ×2 (10:07→20:59)
--- NOTE | 2018-06-12 11:00 | XR ---
EXAM DATE: 06/12/2018 10:57 AM EST AGE/SEX: 32 years / Female INDICATIONS: . Shortness of breath. CLINICAL DATA: This is the patient's initial encounter. Patient reports that signs and symptoms have been present for 2 days and indicates a pain score of 0/10. MEDICAL/SURGICAL HISTORY: Seizures. Asthma. None. COMPARISON: [facility], CHEST 1V SINGLE AP, 06/11/2018. . FINDINGS: PA and lateral views of the chest demonstrate the lungs to be symmetrically aerated without evidence of mass, infiltrate or effusion. The cardiomediastinal contours are unremarkable. Osseous structures are intact. CONCLUSION: No acute cardiopulmonary process. Electronically signed by: Kane Santizo MD 06/12/2018 10:59 AM EST
--- NOTE | 2018-06-12 12:57 | P.PNADD ---
Addendum to Inpatient Note Reason for Addendum: Additional Documentation Additional information: Please see the resident H&P from 06/11/18 for full documentation of the patients history. Patient was seen and examined by me at 10:00am on 06/12/18. Patient reportedly had fever, flank pain, cough, congestion and diarrhea and then had a witnessed seizure prior to coming to the ED. She has a known history of seizure disorder and has been off of her keppra for the past two months for social reasons. Patient has been living outdoors, no income, and using cocaine. She also reports to us this morning for the first time that she has been passing clots vaginally for a couple of days -- she states this has stopped though. She reports h/o cervical cancer and h/o partial hysterectomy with one ovary removed but states she continues to have monthly cycles even after the partial hysterectomy? This morning in the exam room she also reports for the first time severe epigastric stomach pain. She denies vomiting, states she has been nauseated but not now. No changes in her bowels. This morning for the first time reports bumps on her head that she wants to have investigated. No itching on her scalp. Vital Signs Temp Pulse Resp BP Pulse Ox 06/12/18 13:09 99.4 F 92 H 20 114/74 98 06/12/18 12:29 74 16 134/78 06/12/18 11:57 98 06/12/18 09:00 98.0 F 73 118/78 98 06/12/18 07:52 97.2 F L 98 H 18 104/81 98 06/12/18 06:29 98 H 20 112/66 06/12/18 04:05 100 H 20 111/65 96 06/11/18 22:00 100 H 18 114/63 96 06/11/18 19:31 106 H 20 124/67 98 06/11/18 18:55 106 H 19 132/77 100 06/11/18 17:38 99.6 F 122 H 20 121/77 98 Intake and Output 06/11/18 06/12/18 06/12/18 22:59 06:59 14:59 Intake Total 1100 / 1100 105 / 105 1000 / 1000 Balance 1100 / 1100 105 / 105 1000 / 1000 Intake: IV 1100 / 1100 105 / 105 1000 / 1000 NS Inj 1,000 ML @ 90 mls/hr IV. 1000 / 1000 CONT .Q11H7M [facility] Rx#:[id number] NS Inj 1,000 ML @ Wide Open IV. 1000 / 1000 SIG BOLUS ONE Rx#:[id number] Rocephin Inj 1,000 MG In NS Inj 100 / 100 100 ML @ 200 mls/hr IV.SIG ONCE ONE Rx#:[id number] Keppra Inj 500 MG In NS Inj 100 105 / 105 ML @ 400 mls/hr IV.SIG ONCE ONE Rx#:[id number] Other: Weight 52.163 kg 52.7 kg Weight On Admission 52.7 kg Patient Weight 06/13/18 06:59 Weight 52.7 kg Abnormal lab results 06/11/18 06/11/18 06/11/18 Range/Units 19:25 19:25 19:40 RBC (4.00-5.30) mil/mm3 Hgb 10.0 L (11.6-15.3) gm/dL Hct 32.3 L (35.0-46.0) % MCV 75.3 L (80.0-100.0) fL MCH 23.4 L (27.0-34.0) pg MCHC 31.1 L (32.0-36.0) % Neut % (Auto) 78.1 H (16.0-70.0) % [place] % (Auto) 11.4 H (0.0-8.0) % Lymph # (Auto) 0.9 L (1.0-4.8) th/mm3 [place] # (Auto) 1.0 H (0.0-0.9) th/mm3 Seg Neuts % (Manual) (16-70) % Sodium (136-145) meq/L Potassium (3.5-5.1) meq/L Calcium (8.5-10.1) mg/dL AST (15-37) U/L ALT (10-53) U/L Alkaline Phosphatase (45-117) U/L Albumin (3.4-5.0) g/dL Urine Clarity Cloudy H (Clear) Urine Protein 100 H (Neg-Trace) mg/dL Urine Occult Blood Moderate H (Negative) Urine Nitrate Positive H (Negative) Urine Urobilinogen 2.0 H (Less than 2) mg/dL Ur Leukocyte Esterase Large H (Negative) Urine RBC 22 H (0-3) /hpf Urine WBC 134 H (0-5) /hpf Urine Bacteria Many H (None) /hpf Urine Mucus Few H (Occasional) /lpf Urine Cocaine Screen Pos H (Neg) 06/11/18 06/12/18 06/12/18 Range/Units 19:40 05:58 05:58 RBC 3.40 L (4.00-5.30) mil/mm3 Hgb 8.1 L (11.6-15.3) gm/dL Hct 25.8 L (35.0-46.0) % MCV 75.7 L (80.0-100.0) fL MCH 23.7 L (27.0-34.0) pg MCHC 31.4 L (32.0-36.0) % Neut % (Auto) (16.0-70.0) % [place] % (Auto) (0.0-8.0) % Lymph # (Auto) (1.0-4.8) th/mm3 [place] # (Auto) (0.0-0.9) th/mm3 Seg Neuts % (Manual) 80 H (16-70) % Sodium 134 L (136-145) meq/L Potassium 3.3 L (3.5-5.1) meq/L Calcium 7.6 L D (8.5-10.1) mg/dL AST 47 H (15-37) U/L ALT 75 H (10-53) U/L Alkaline Phosphatase 138 H (45-117) U/L Albumin 3.1 L 2.4 L D (3.4-5.0) g/dL Urine Clarity (Clear) Urine Protein (Neg-Trace) mg/dL Urine Occult Blood (Negative) Urine Nitrate (Negative) Urine Urobilinogen (Less than 2) mg/dL Ur Leukocyte Esterase (Negative) Urine RBC (0-3) /hpf Urine WBC (0-5) /hpf Urine Bacteria (None) /hpf Urine Mucus (Occasional) /lpf Urine Cocaine Screen (Neg) Head CT 06/11/18 19:04 CONCLUSION: No acute intracranial abnormality. Chronic appearing paranasal sinusitis, worse than before. . Chest X-Ray 06/12/18 10:14 CONCLUSION: No acute cardiopulmonary process. GENERAL: alert and oriented. Appears to be mildly in pain SKIN: Warm and dry. HEAD: Atraumatic. Normocephalic. Scalp erythematous cicular patches in the skin with no hair follicles EYES: Pupils equal and round. No scleral icterus. No injection or drainage. ENT: No nasal bleeding or discharge. Mucous membranes pink and moist. NECK: Trachea midline. No JVD. CARDIOVASCULAR: Regular rate and rhythm. RESPIRATORY: No accessory muscle use. Clear to auscultation. Breath sounds equal bilaterally. GASTROINTESTINAL: Abdomen soft, tender diffusely but concentrated in the epigastrium, tender along the flanks, nondistended. Hepatic and splenic margins not palpable. MUSCULOSKELETAL: Extremities without clubbing, cyanosis, or edema. No obvious deformities. NEUROLOGICAL: Awake and alert. No obvious cranial nerve deficits. Motor grossly within normal limits. PSYCHIATRIC: Appropriate mood and affect; insight and judgment normal. 1. Seizure -- likely occurred because patient stopped her medication 2 months ago. Check EGG, continue keppra, MRI brain, following neurology recommendations. 2. Substance abuse -- pt denies. Needs to stop. Check Hep C and HIV -- pt is agreeable to check 3. Vaginal bleeding -- unclear -- patient with h/o hysterectomy so this is pretty odd. Stopped per patient right now -- will check abd/Pelvis CT 4. Scalp consistent with fungus -- will start on ketoconazole shampoo 5. Abdominal pain -- unclear etiology but very tender on exam -- might be due to the possible pyelo process -- check CT 6. Pyelo -- IVF, antibiotics Additional information: Hemoglobin noted to drop two points Went back to patient room around 1:00pm to re-evaluate with Dr. Whitfield. No source of bleeding per patient. Denies GI blood loss Pelvic exam -- difficult to visualize the whole vault but yellow discharge seen , profuse, no blood, no cervix seen, on bimanual exam no cervix or uterus palpated. Patient is diffusely tender. Will monitor H/H to make sure stabilized -- might just be dilutional Check FOBT Send for /Chlam testing Follow CT abd/pelvis --consider further workup/imaging based on the results of the above ordered tests
--- NOTE | 2018-06-12 13:39 | MG ---
cc: Jaycob Monahan MD, PhD TEST NUMBER: [id number] TECHNIQUE: A 17-channel EEG. DESCRIPTION: The background rhythm reveals a symmetrical alpha activity. Frequency is about 8-9 Hz. Amplitude is 20-30 microvolts. There is the expected anterior decrement to the response during drowsiness, there is slowing in the theta range. The patient does appear to fall asleep. There is delta slowing with sleep spindles present. No epileptiform discharges are seen. No lateralizing features are seen. Photic results in a normal driving response. INTERPRETATION: Normal awake and asleep EEG. Jaycob Monahan MD, PhD MILEY/ , 01:17 PM , 01:21 PM
[2018-06-12 14:08] LABS: Hepatitis A IgM Antibody Nonreactive (Nonreactive)
[2018-06-12 14:09] LABS: Hepatitits B Surface Antigen Nonreactive (Nonreactive)
[2018-06-12 16:00] LABS: Hematocrit 26.4 % (35.0-46.0); Hemoglobin 8.3 gm/dL (11.6-15.3)
--- NOTE | 2018-06-12 17:57 | CT ---
EXAM DATE: 06/12/2018 5:43 PM EST AGE/SEX: 32 years / Female INDICATIONS: Lower abdomen and back pain with diarrhea and fever. CLINICAL DATA: This is the patient's initial encounter. Patient reports that signs and symptoms have been present for 1 week and indicates a pain score of 10/10. MEDICAL/SURGICAL HISTORY: Carcinoma, cervical. Hysterectomy. ORAL CONTRAST: No oral contrast ingested. RADIATION DOSE: 4.78 CTDI (mGy) COMPARISON: No prior exams available for comparison. TECHNIQUE: Multiple contiguous axial images were obtained through the abdomen and pelvis following b olus infusion of 80 ml Omnipaque 350 (iohexol) nonionic water-soluble contrast as a single exam dos e. No oral contrast ingested. Using automated exposure control and adjustment of the mA and/or kV ac cording to patient size, radiation dose was kept as low as reasonably achievable to obtain optimal di agnostic quality images. DICOM format image data is available electronically for review and comparis on. FINDINGS: Lower Lungs: The visualized lower lungs are clear. Liver: There is a 0.9 cm hypodensity seen in the right lobe of the liver. This nonspecific. Spleen: Homogeneous density without enlargement. Pancreas: Unremarkable without mass or calcification. Kidneys: Normal in size and shape. No evidence of mass or hydronephrosis. Adrenal Glands: Unremarkable. Aorta: The aorta and proximal iliac vessels are grossly unremarkable without aneurysmal dilation. Bowel/Mesentery: There is minimal free fluid seen in the right paracolic gutter region. The bowel lo ops are grossly unremarkable. The cecum and sigmoid colon have a normal configuration. What appears t o be a normal air-filled appendix is seen in the right lower quadrant. Abdominal Wall: Intact. Retroperitoneum: No evidence of adenopathy in the retrocrural, para-aortic, or deep pelvic regions. Bladder: Contours are smooth. Reproductive Organs: No abnormal masses or calcifications seen. Inguinal: The inguinal region is unremarkable without evidence of adenopathy. Bony Structures: There is a pars defect at the right L5 level. CONCLUSION: 1. Minimal free fluid in the right paracolic gutter region. The cause of this precluded is not seen. 2. Nonspecific 0.9 cm hypodensity seen in the liver. Statistically, this likely represents a cyst or hemangioma. Electronically signed by: Kane Santizo MD 06/12/2018 5:55 PM EST
[2018-06-12] MEDS ORDERED: Influenza (Quadrivalent) Vaccine 0.5 ML Syringe IM ONE (18:00)
[2018-06-12] MEDS ORDERED: Gadobutrol PF 2 MMOL/2 ML Vial (for RAD) IV.SIG ONE (18:29)
--- NOTE | 2018-06-12 18:41 | MR ---
EXAM DATE: 06/12/2018 6:31 PM EST AGE/SEX: 32 years / Female INDICATIONS: Encephalitis. Cephalgia. CLINICAL DATA: This is the patient's subsequent encounter. Patient reports that signs and symptoms h ave been present for 2 days and indicates a pain score of 0/10. MEDICAL/SURGICAL HISTORY: Seizures. Carcinoma, cervical. Hysterectomy. COMPARISON: [facility] – [place], [place] HEAD W/O CONTRAST, 06/11/2018. . TECHNIQUE: Multiplanar, multisequence examination of the brain was performed without and with 5 ml Ga davist (gadobutrol) contrast as a single exam dose. FINDINGS: Cerebrum: The ventricles are normal for age. No evidence of midline shift, mass lesion, hemorrhage or acute infarction. No extraaxial fluid collections are seen. The pituitary gland and suprasellar cistern are normal in configuration. White Matter: No significant signal abnormalities are seen in the white matter. Posterior Fossa: The cerebellum and brainstem are intact. The 4th ventricle is midline. The cerebel lopontine angle is unremarkable. The cerebellar tonsils are normal in position. Diffusion Imaging: No focal areas of restricted diffusion are seen. No evidence of acute infarction . Extracranial: There is mucoperiosteal thickening and enhancement of the frontal, ethmoid and sphenoi d sinuses, left worse than right. Post Contrast: No abnormal areas of parenchymal or dural enhancement. No evidence of blood-brain ba rrier breakdown. CONCLUSION: 1. Normal MRI of the brain. 2. Chronic paranasal sinus disease. Electronically signed by: Kane Farias MD 06/12/2018 6:39 PM EST
--- NOTE | 2018-06-12 21:19 | ECG ---
Date Performed: 06/12/2018 Time Performed: 11:26:55 PTAGE: 32 years EKG: Sinus rhythm WITH SHORT WY INTERVAL MINIMAL ST DEPRESSION BORDERLINE ECG PREVIOUS TRACING : 04/14/2001 19.54 Since the previous tracing, no significant change noted DOCTOR: Kyle Huynh Interpretating Date/Time 06/12/2018 21:18:27
[2018-06-13] MEDS: levETIRAcetam 500 MG Tablet PO SCH ×2 (08:51→20:26)
[2018-06-13] MEDS: Senna/Docusate Sodium 8.6/50 MG Tablet PO SCH ×2 (08:52→22:23)
[2018-06-13] MEDS: Sod Chloride 0.9% Inj 1,000 ML IV.CONT SCH ×2 (08:52→16:19)
--- NOTE | 2018-06-13 10:04 | P.PNFP ---
Subjective Interval history: No acute events overnight. Patient states she continues to have some abdominal pain but overall it is much better. She reportedly had a seizure last night and was given Ativan. She continues to have headache no significant vision changes. Denies any chest pain, shortness of breath, vaginal bleeding. <Owen Whitfield B - 06/13/18 17:10> Results - Labs Result diagrams: 06/14/18 06:38 06/14/18 06:38 <Karla Snyder R - 06/14/18 10:29> Abnormal lab results 06/13/18 06/13/18 06/13/18 Range/Units 10:04 10:04 18:00 WBC (4.0-11.0) th/mm3 RBC 3.45 L (4.00-5.30) mil/mm3 Hgb 8.2 L (11.6-15.3) gm/dL Hct 26.6 L (35.0-46.0) % MCV 76.9 L (80.0-100.0) fL MCH 23.9 L (27.0-34.0) pg MCHC 31.0 L (32.0-36.0) % RDW 17.4 H (11.6-17.2) % Plt Count 141 L (150-450) th/mm3 [place] % (Auto) 12.1 H (0.0-8.0) % Eos % (Auto) (0.0-4.0) % Neut # (Auto) (1.8-7.7) th/mm3 Lymph # (Auto) (1.0-4.8) th/mm3 Potassium 3.2 L (3.5-5.1) meq/L Chloride (98-107) meq/L BUN 5 L (7-18) mg/dL Creatinine 0.48 L (0.50-1.00) mg/dL Random Glucose 117 H (74-106) mg/dL Calcium (8.5-10.1) mg/dL AST 89 H (15-37) U/L ALT 81 H (10-53) U/L Alkaline Phosphatase 130 H (45-117) U/L Albumin 2.5 L (3.4-5.0) g/dL Urine Cocaine Screen Pos H (Neg) 12/06/18 12/06/18 Range/Units 06:38 06:38 WBC 2.6 L (4.0-11.0) th/mm3 RBC 2.79 L (4.00-5.30) mil/mm3 Hgb 6.6 L* (11.6-15.3) gm/dL Hct 21.2 L (35.0-46.0) % MCV 76.0 L (80.0-100.0) fL MCH 23.8 L (27.0-34.0) pg MCHC 31.3 L (32.0-36.0) % RDW (11.6-17.2) % Plt Count 120 L (150-450) th/mm3 [place] % (Auto) 10.9 H (0.0-8.0) % Eos % (Auto) 5.5 H (0.0-4.0) % Neut # (Auto) 1.5 L (1.8-7.7) th/mm3 Lymph # (Auto) 0.7 L (1.0-4.8) th/mm3 Potassium 3.1 L (3.5-5.1) meq/L Chloride 111 H (98-107) meq/L BUN 3 L (7-18) mg/dL Creatinine 0.44 L (0.50-1.00) mg/dL Random Glucose (74-106) mg/dL Calcium 7.8 L D (8.5-10.1) mg/dL AST (15-37) U/L ALT (10-53) U/L Alkaline Phosphatase (45-117) U/L Albumin (3.4-5.0) g/dL Urine Cocaine Screen (Neg) Short CBC 06/13/18 06/14/18 Range/Units 10:04 06:38 WBC 4.5 2.6 L (4.0-11.0) th/mm3 Hgb 8.2 L 6.6 L* (11.6-15.3) gm/dL Hct 26.6 L 21.2 L (35.0-46.0) % Plt Count 141 L 120 L (150-450) th/mm3 BMP 06/13/18 06/14/18 10:04 06:38 Sodium 139 142 Potassium 3.2 L 3.1 L Chloride 106 111 H Carbon Dioxide 24.5 24.4 BUN 5 L 3 L Creatinine 0.48 L 0.44 L Calcium 8.6 D 7.8 L D Liver Function 06/13/18 Range/Units 10:04 Total Bilirubin 0.2 (0.2-1.0) mg/dL AST 89 H (15-37) U/L ALT 81 H (10-53) U/L Alkaline Phosphatase 130 H (45-117) U/L Albumin 2.5 L (3.4-5.0) g/dL <Karla Snyder - 06/14/18 10:29> Abnormal lab results 06/11/18 06/12/18 Range/Units 19:25 15:25 Hgb 8.3 L (11.6-15.3) gm/dL Hct 26.4 L (35.0-46.0) % Urine Clarity Cloudy H (Clear) Urine Protein 100 H (Neg-Trace) mg/dL Urine Occult Blood Moderate H (Negative) Urine Nitrate Positive H (Negative) Urine Urobilinogen 2.0 H (Less than 2) mg/dL Ur Leukocyte Esterase Large H (Negative) Urine RBC 22 H (0-3) /hpf Urine WBC 134 H (0-5) /hpf Urine Bacteria Many H (None) /hpf Urine Mucus Few H (Occasional) /lpf Short CBC 06/12/18 Range/Units 15:25 Hgb 8.3 L (11.6-15.3) gm/dL Hct 26.4 L (35.0-46.0) % Urine 06/11/18 Range/Units 19:25 Urine Color Yellow (Yellw/Straw) Urine Clarity Cloudy H (Clear) Urine pH 6.0 (5.0-8.5) Ur Specific [place] 1.010 (1.002-1.035) Urine Protein 100 H (Neg-Trace) mg/dL Urine Glucose (UA) Negative (Negative) mg/dL <Owen Whitfield - 06/13/18 10:04> - Imaging Impressions Abdomen/Pelvis CT 06/12/18 00:00 CONCLUSION: 1. Minimal free fluid in the right paracolic gutter region. The cause of this precluded is not seen. 2. Nonspecific 0.9 cm hypodensity seen in the liver. Statistically, this likely represents a cyst or hemangioma. Head MRI 06/12/18 08:51 CONCLUSION: 1. Normal MRI of the brain. 2. Chronic paranasal sinus disease. Chest X-Ray 06/12/18 10:14 CONCLUSION: No acute cardiopulmonary process. <Owen Whitfield B - 06/13/18 10:04> Physical Exam Vital signs: Vital Signs 06/13/18 10:49 06/13/18 12:00 06/13/18 16:15 Temperature 96.6 F L 96.4 F L Pulse Rate 89 84 75 Respiratory Rate 20 16 Blood Pressure 109/62 108/67 Pulse Oximetry 98 99 06/13/18 20:00 06/13/18 20:15 06/13/18 20:28 Temperature 98.3 F Pulse Rate 103 H 82 82 Respiratory Rate 18 16 Blood Pressure 130/88 114/72 Pulse Oximetry 100 06/14/18 00:00 06/14/18 04:00 06/14/18 06:42 Temperature 97.6 F 98.6 F Pulse Rate 75 70 74 Respiratory Rate 18 18 16 Blood Pressure 117/62 102/60 118/76 Pulse Oximetry 100 99 06/14/18 08:00 Temperature 99.1 F Pulse Rate 70 Respiratory Rate 18 Blood Pressure 103/65 Pulse Oximetry 98 Intake & Output 06/13/18 06/14/18 06/14/18 18:59 06:59 18:59 Intake Total 1250 / 1250 1100 / 1100 1000 / 1000 Balance 1250 / 1250 1100 / 1100 1000 / 1000 Weight 59 kg Intake: IV 1250 / 1250 1100 / 1100 1000 / 1000 NS Inj 1,000 ML @ 125 mls/hr IV 1250 / 1250 1000 / 1000 1000 / 1000 .CONT .Q8H [facility] Rx#:[id number] Rocephin Inj 1,000 MG In NS Inj 100 / 100 100 ML @ 200 mls/hr IV.SIG Q24H [facility] Rx#:[id number] Other: # Voids 1 3 Date of Last Bowel Movement 06/12/18 06/12/18 <Karla Snyder - 06/14/18 10:29> Vital Signs 06/12/18 11:57 06/12/18 12:29 06/12/18 13:09 Temperature 99.4 F Pulse Rate 74 92 H Respiratory Rate 16 20 Blood Pressure 134/78 114/74 Pulse Oximetry 98 98 06/12/18 15:50 06/12/18 20:00 06/12/18 21:15 Temperature 98.3 F 98.3 F Pulse Rate 91 H 93 H 76 Respiratory Rate 20 20 Blood Pressure 109/53 L 106/61 Pulse Oximetry 94 L 99 06/13/18 00:00 06/13/18 01:00 06/13/18 04:00 Temperature 98.7 F 98.1 F Pulse Rate 98 H 94 H 79 Respiratory Rate 20 20 Blood Pressure 99/54 L 88/74 L Pulse Oximetry 100 98 06/13/18 04:14 06/13/18 07:28 06/13/18 08:00 Temperature 97.7 F Pulse Rate 77 79 Respiratory Rate 16 20 Blood Pressure 107/60 Pulse Oximetry 98 06/13/18 09:14 Temperature Pulse Rate Respiratory Rate Blood Pressure Pulse Oximetry 99 Intake & Output 06/12/18 06/13/18 06/13/18 18:59 06:59 18:59 Intake Total 1000 / 1000 1795 / 1795 250 / 250 Balance 1000 / 1000 1795 / 1795 250 / 250 Weight 52.7 kg 58.8 kg Intake: IV 1000 / 1000 1795 / 1795 250 / 250 NS Inj 1,000 ML @ 125 mls/hr IV 1000 / 1000 1695 / 1695 250 / 250 .CONT .Q8H [facility] Rx#:[id number] Rocephin Inj 1,000 MG In NS Inj 100 / 100 100 ML @ 200 mls/hr IV.SIG Q24H [facility] Rx#:[id number] Other: # Voids 3 Date of Last Bowel Movement 06/11/18 Weight On Admission 52.7 kg <Owen Whitfield B - 06/13/18 10:04> Narrative: GENERAL: alert and oriented. In no acute distress SKIN: Warm and dry. HEAD: Atraumatic. Normocephalic. Scalp erythematous cicular patches in the skin with no hair follicles EYES: Pupils equal and round. No scleral icterus. No injection or drainage. ENT: No nasal bleeding or discharge. Mucous membranes pink and moist. NECK: Trachea midline. No JVD. CARDIOVASCULAR: Regular rate and rhythm. RESPIRATORY: No accessory muscle use. Clear to auscultation. Breath sounds equal bilaterally. GASTROINTESTINAL: Abdomen soft, nondistended and mildly tender to palpation in the suprapubic region. Improved from prior exam. Hepatic and splenic margins not palpable. MUSCULOSKELETAL: Extremities without clubbing, cyanosis, or edema. No obvious deformities. NEUROLOGICAL: Awake and alert. No obvious cranial nerve deficits. Motor grossly within normal limits. PSYCHIATRIC: Appropriate mood and affect; insight and judgment normal. <Owen Whitfield [facility] 06/13/18 17:10> - Urinary Catheter Management Straight Cath placed during this visit: no <Karla Snyder [facility] 06/14/18 10:29> yes <Owen Whitfield [facility] 06/13/18 17:10> Reason for continuing: Not indwelling catheter <Owen Whitfield [facility] 06/13/18 10 :04> Insertion date: 06/11/18 <Owen Whitfield [facility] 06/13/18 10:04> Insertion time: 19:35 <Owen Whitfield [facility] 06/13/18 10:04> Assessment and Plan - Assessment (1) UTI (urinary tract infection) Code(s): N39.0 - Urinary tract infection, site not specified Status: Acute (2) Seizure Code(s): R56.9 - Unspecified convulsions Status: Acute (3) Elevated alanine aminotransferase (ALT) level Code(s): R74.0 - Nonspecific elevation of levels of transaminase and lactic acid dehydrogenase [LDH] Status: Acute (4) Abdominal pain Code(s): R10.9 - Unspecified abdominal pain Status: Acute (5) Substance abuse Code(s): F19.10 - Other psychoactive substance abuse, uncomplicated Status: Acute (6) DVT prophylaxis Status: Acute (7) Nutrition, metabolism, and development symptoms Code(s): R63.8 - Other symptoms and signs concerning food and fluid intake Status: Acute <Karla Snyder [facility] 06/14/18 10:29> (1) UTI (urinary tract infection) Code(s): N39.0 - Urinary tract infection, site not specified Status: Acute Plan: Per ED note, 1 week of fevers and bilateral flank pain. UA positive for Nitrites and large amounts of leukocyte esterase with high WBC. Concerning for UTI versus pyelonephritis. Urine culture growing pansensitive E. coli Continue Rocephin 1 g daily while in hospital (2) Seizure Code(s): R56.9 - Unspecified convulsions Status: Acute Plan: Patient has history of seizures on Keppra 500 mg twice daily. Patient noncompliant on medication for the past couple weeks. Witnessed seizure in the emergency room today. Given 2 milligrams of Ativan and is currently post ictal. Neurology consulted. Appreciate recommendations. EEG ordered and was normal Resume home Keppra 500 mg p.o. twice daily. 1000 mg keppra given in ED. Nursing staff reported another seizure that resolved after 1 dose of Ativan on the afternoon of 06/12. MDs were not notified. Instructed nursing staff to contact neurology and make them aware. May need increase dose of her home Keppra Ordering UDS as patient did have a visitor and has a known substance abuse history (3) Elevated alanine aminotransferase (ALT) level Code(s): R74.0 - Nonspecific elevation of levels of transaminase and lactic acid dehydrogenase [LDH] Status: Acute Plan: Elevated liver enzymes on admission Continue to monitor. Hepatitis panel negative (4) Abdominal pain Code(s): R10.9 - Unspecified abdominal pain Status: Acute Plan: Patient had abdominal pain on admission and had reported some vaginal bleeding that was not consistent with her normal cycle CT abdomen showed minimal free fluid in the right paracolic gutter region, nonspecific 0.9 cm hypodensity in the liver Pelvic exam on 06/12 did not show any signs of bleeding but did show some thin odorous vaginal discharge GC chlamydia are ordered and negative Abdominal pain improved on 06/13, continue to monitor (5) Substance abuse Code(s): F19.10 - Other psychoactive substance abuse, uncomplicated Status: Acute Plan: History of substance abuse. UDS positive for cocaine on admission Continue to monitor for signs of withdrawal. (6) DVT prophylaxis Status: Acute Plan: SCDs (7) Nutrition, metabolism, and development symptoms Code(s): R63.8 - Other symptoms and signs concerning food and fluid intake Status: Acute Plan: Fluids: maintenance fluids NS at 90 mls/hour Electrolytes: Monitor and replete as needed. Nutrition: Regular diet. <Owen Whitfield - 06/13/18 17:01> - Assessment and Plan 32-year-old with past medical history of seizures presents the emergency room for 1 week of fever, chills and bilateral flank pain. Urine culture positive for large leukocyte esterase and high WBCs concerning for pyelonephritis. Patient had a witnessed seizure in the emergency room for 20 seconds and was given 2 mg of Ativan. Patient admitted for UTI treatment and seizure workup. Currently being treated for UTI with Rocephin, neurology on board for Keppra dosing. <Owen Whitfield B - 06/13/18 17:10> - Attending Attestation Patient seen and dw resident team. Agree with assessment and plan <Karla Snyder R - 06/14/18 10:29>
[2018-06-13 10:41] LABS: Baso % (Auto) 0.4 % (0.0-2.0); Eos # (Auto) 0.1 th/mm3 (0.0-0.4); Eos % (Auto) 3.2 % (0.0-4.0); Hematocrit 26.6 % (35.0-46.0); Hemoglobin 8.2 gm/dL (11.6-15.3); Lymph % (Auto) 22.8 % (9.0-44.0); Mean Corpuscular Hemoglobin 23.9 pg (27.0-34.0); Mean Corpuscular Volume 76.9 fL (80.0-100.0); Mean Platelet Volume 8.3 fL (7.0-11.0); Mono # (Auto) 0.5 th/mm3 (0.0-0.9); Mono % (Auto) 12.1 % (0.0-8.0); Neut # (Auto) 2.8 th/mm3 (1.8-7.7); Neut % (Auto) 61.5 % (16.0-70.0); Platelet Count 141 th/mm3 (150-450); Red Blood Count 3.45 mil/mm3 (4.00-5.30); Red Cell Distribution Width 17.4 % (11.6-17.2); White Blood Count 4.5 th/mm3 (4.0-11.0)
[2018-06-13 11:05] LABS: Albumin 2.5 g/dL (3.4-5.0); Anion Gap 9 meq/L (5-15); Aspartate Aminotransferase 89 U/L (15-37); Blood Urea Nitrogen 5 mg/dL (7-18); Calcium 8.6 mg/dL (8.5-10.1); Carbon Dioxide 24.5 meq/L (21.0-32.0); Chloride 106 meq/L (98-107); Glomerular Filtration Rate Greater Than 89 mL/min (>89); Glucose,Random 117 mg/dL (74-106); Potassium 3.2 meq/L (3.5-5.1); Sodium 139 meq/L (136-145)
[2018-06-13 11:10] LABS: Alanine Aminotransferase 81 U/L (10-53); Alkaline Phosphatase 130 U/L (45-117); Total Protein 6.7 g/dL (6.4-8.2)
[2018-06-13 20:10] LABS: Amphetamine Screen,Urine Neg (Neg); Barbiturate Screen,Urine Neg (Neg); Cannabinoid Screen,Urine Neg (Neg); Cocaine Screen,Urine Pos (Neg)
[2018-06-13 20:20] LABS: Opiate Screen,Urine Neg (Neg)
[2018-06-14] MEDS: Sod Chloride 0.9% Inj 1,000 ML IV.CONT SCH ×3 (01:59→17:06)
--- NOTE | 2018-06-14 06:43 | P.PNADD ---
Addendum to Inpatient Note Reason for Addendum: Additional Documentation Additional information: S: Medical team supervisor contact lens notified at approximately 0615 by nursing staff that patient had a seizure on 06/13/18 at approximately 2030. Per nursing report, patient did not display tonicclonic seizure-like activity, but rather "had her eyes roll to the back of her head and was unresponsive for approximately 2 minutes." She was administered 2 mg of Ativan which resolved her symptoms per nursing report. Patient was evaluated on 06/14/18 by medical team supervisor contact lens. She states that she has no recollection of the seizure, but currently states she is "very sore." She states that she cannot remember anything last night as she fell asleep immediately after her seizure. She states that she slept throughout the night until this morning, however upon entering the room patient was on the phone. Other than her soreness, patient states she has no acute complaints at this time. O: GENERAL: Thin female lying in bed appearing fatigued, but in no acute distress. SKIN: Cool and dry. No rash. EYES: No scleral icterus. No injection or drainage. PERRLA. EOMI. HENT: Normocephalic. Atraumatic. MMM. NECK: No visible JVD or lymphadenopathy. CARDIOVASCULAR: Regular rate and rhythm with no MGR appreciated. RESPIRATORY: Clear to anterior auscultation bilaterally with no CRW appreciated. No increased work of breathing. GASTROINTESTINAL: Abdomen nondistended. MUSCULOSKELETAL: Strength grossly WNL. Patient endorses "full body soreness." Patient endorses calf tenderness with negative Homans sign. NEURO/PSYCH: Afocal. Awake, alert, and oriented x3. Normal speech and judgment. Patient talking on the phone upon entering the room. A/P: Ms. Campos is a 32-year-old female admitted for UTI and seizure-like activity with seizure on 06/13/18 at approximately 2030. Patient does not appear postictal at this time his neurologic exam is benign Patient endorses tenderness likely related to possible muscle contractions during seizure-like episode Patient responded to as needed Ativan per nursing staff Neurology previously consulted Continue to monitor
[2018-06-14 07:49] LABS: Baso % (Auto) 0.5 % (0.0-2.0); Eos # (Auto) 0.1 th/mm3 (0.0-0.4); Eos % (Auto) 5.5 % (0.0-4.0); Hematocrit 21.2 % (35.0-46.0); Lymph # (Auto) 0.7 th/mm3 (1.0-4.8); Mean Corpuscular HGB Conc 31.3 % (32.0-36.0); Mean Corpuscular Hemoglobin 23.8 pg (27.0-34.0); Mean Platelet Volume 8.3 fL (7.0-11.0); Mono # (Auto) 0.3 th/mm3 (0.0-0.9); Mono % (Auto) 10.9 % (0.0-8.0); Neut # (Auto) 1.5 th/mm3 (1.8-7.7); Neut % (Auto) 57.1 % (16.0-70.0); Platelet Count 120 th/mm3 (150-450); Red Blood Count 2.79 mil/mm3 (4.00-5.30); Red Cell Distribution Width 16.9 % (11.6-17.2); White Blood Count 2.6 th/mm3 (4.0-11.0)
[2018-06-14 07:56] LABS: Hemoglobin 6.6 gm/dL (11.6-15.3)
[2018-06-14 08:03] LABS: Anion Gap 7 meq/L (5-15); Blood Urea Nitrogen 3 mg/dL (7-18); Calcium 7.8 mg/dL (8.5-10.1); Carbon Dioxide 24.4 meq/L (21.0-32.0); Chloride 111 meq/L (98-107); Glomerular Filtration Rate Greater Than 89 mL/min (>89); Glucose,Random 91 mg/dL (74-106); Potassium 3.1 meq/L (3.5-5.1); Sodium 142 meq/L (136-145)
--- NOTE | 2018-06-14 08:52 | P.PNFP ---
Subjective Interval history: Patient seen and examined at bedside this morning. Overnight , there were 2 documented episodes of seizure activity, one happening around 8 PM and one happening at 6:30 AM. Resident's overnight were not notified until 6 AM about the 8 PM seizure. 6:30 AM seizure was notified to day team residents during rounding at 8 AM. Spoke to the charge nurse, relayed the importance of MDs being notified with seizure activity. Nursing communication was added for better protocols. Per patient, she confirms 2 seizures overnight, confirms that she sees an aura of blurry vision before having the seizure. States that the 2 mg of Ativan helped. She currently complains of a mild migraine, but no blurry vision. She states that she has full body aches. She is groggy since she just recently received 2 mg of Ativan at 6:36 AM. She she denies any vaginal bleeding. States that her abdominal pain has slightly resolved. She denies any chest pain or shortness of breath or leg pain. <Janis Christianson - 06/14/18 13:48> Results - Labs Result diagrams: 06/14/18 11:36 06/14/18 11:36 <Karla Snyder - 06/14/18 14:50> Abnormal lab results 06/13/18 06/14/18 06/14/18 Range/Units 18:00 06:38 06:38 WBC 2.6 L (4.0-11.0) th/mm3 RBC 2.79 L (4.00-5.30) mil/mm3 Hgb 6.6 L* (11.6-15.3) gm/dL Hct 21.2 L (35.0-46.0) % MCV 76.0 L (80.0-100.0) fL MCH 23.8 L (27.0-34.0) pg MCHC 31.3 L (32.0-36.0) % Plt Count 120 L (150-450) th/mm3 [place] % (Auto) 10.9 H (0.0-8.0) % Eos % (Auto) 5.5 H (0.0-4.0) % Neut # (Auto) 1.5 L (1.8-7.7) th/mm3 Lymph # (Auto) 0.7 L (1.0-4.8) th/mm3 Potassium 3.1 L (3.5-5.1) meq/L Chloride 111 H (98-107) meq/L BUN 3 L (7-18) mg/dL Creatinine 0.44 L (0.50-1.00) mg/dL Calcium 7.8 L D (8.5-10.1) mg/dL AST (15-37) U/L ALT (10-53) U/L Alkaline Phosphatase (45-117) U/L Total Protein (6.4-8.2) g/dL Albumin (3.4-5.0) g/dL Urine Cocaine Screen Pos H (Neg) MTS Gel Crossmatch 06/14/18 06/14/18 06/14/18 Range/Units 11:36 11:36 11:36 WBC (4.0-11.0) th/mm3 RBC (4.00-5.30) mil/mm3 Hgb 7.3 L (11.6-15.3) gm/dL Hct 23.5 L (35.0-46.0) % MCV (80.0-100.0) fL MCH (27.0-34.0) pg MCHC (32.0-36.0) % Plt Count (150-450) th/mm3 [place] % (Auto) (0.0-8.0) % Eos % (Auto) (0.0-4.0) % Neut # (Auto) (1.8-7.7) th/mm3 Lymph # (Auto) (1.0-4.8) th/mm3 Potassium (3.5-5.1) meq/L Chloride (98-107) meq/L BUN (7-18) mg/dL Creatinine (0.50-1.00) mg/dL Calcium 7.7 L (8.5-10.1) mg/dL AST 40 H (15-37) U/L ALT 77 H (10-53) U/L Alkaline Phosphatase 119 H (45-117) U/L Total Protein 6.2 L (6.4-8.2) g/dL Albumin 2.3 L (3.4-5.0) g/dL Urine Cocaine Screen (Neg) MTS Gel Crossmatch See Detail 06/14/18 Range/Units 11:36 WBC (4.0-11.0) th/mm3 RBC (4.00-5.30) mil/mm3 Hgb (11.6-15.3) gm/dL Hct (35.0-46.0) % MCV (80.0-100.0) fL MCH (27.0-34.0) pg MCHC (32.0-36.0) % Plt Count (150-450) th/mm3 [place] % (Auto) (0.0-8.0) % Eos % (Auto) (0.0-4.0) % Neut # (Auto) (1.8-7.7) th/mm3 Lymph # (Auto) (1.0-4.8) th/mm3 Potassium 3.4 L (3.5-5.1) meq/L Chloride (98-107) meq/L BUN (7-18) mg/dL Creatinine (0.50-1.00) mg/dL Calcium (8.5-10.1) mg/dL AST (15-37) U/L ALT (10-53) U/L Alkaline Phosphatase (45-117) U/L Total Protein (6.4-8.2) g/dL Albumin (3.4-5.0) g/dL Urine Cocaine Screen (Neg) MTS Gel Crossmatch Short CBC 06/14/18 06/14/18 Range/Units 06:38 11:36 WBC 2.6 L (4.0-11.0) th/mm3 Hgb 6.6 L* 7.3 L (11.6-15.3) gm/dL Hct 21.2 L 23.5 L (35.0-46.0) % Plt Count 120 L (150-450) th/mm3 BMP 06/14/1818 06/14/18 06:38 11:36 11:36 Sodium 142 Potassium 3.1 L 3.4 L Chloride 111 H Carbon Dioxide 24.4 BUN 3 L Creatinine 0.44 L Calcium 7.8 L D 7.7 L Liver Function 06/14/18 Range/Units 11:36 Total Bilirubin 0.2 (0.2-1.0) mg/dL Direct Bilirubin 0.1 (0.0-0.2) mg/dL AST 40 H (15-37) U/L ALT 77 H (10-53) U/L Alkaline Phosphatase 119 H (45-117) U/L Albumin 2.3 L (3.4-5.0) g/dL <Karla Snyder R - 06/14/18 14:50> Abnormal lab results 18 06/13/18 06/13/18 Range/Units 10:04 10:04 18:00 WBC (4.0-11.0) th/mm3 RBC 3.45 L (4.00-5.30) mil/mm3 Hgb 8.2 L (11.6-15.3) gm/dL Hct 26.6 L (35.0-46.0) % MCV 76.9 L (80.0-100.0) fL MCH 23.9 L (27.0-34.0) pg MCHC 31.0 L (32.0-36.0) % RDW 17.4 H (11.6-17.2) % Plt Count 141 L (150-450) th/mm3 [place] % (Auto) 12.1 H (0.0-8.0) % Eos % (Auto) (0.0-4.0) % Neut # (Auto) (1.8-7.7) th/mm3 Lymph # (Auto) (1.0-4.8) th/mm3 Potassium 3.2 L (3.5-5.1) meq/L Chloride (98-107) meq/L BUN 5 L (7-18) mg/dL Creatinine 0.48 L (0.50-1.00) mg/dL Random Glucose 117 H (74-106) mg/dL Calcium (8.5-10.1) mg/dL AST 89 H (15-37) U/L ALT 81 H (10-53) U/L Alkaline Phosphatase 130 H (45-117) U/L Albumin 2.5 L (3.4-5.0) g/dL Urine Cocaine Screen Pos H (Neg) 06/14/18 06/14/18 Range/Units 06:38 06:38 WBC 2.6 L (4.0-11.0) th/mm3 RBC 2.79 L (4.00-5.30) mil/mm3 Hgb 6.6 L* (11.6-15.3) gm/dL Hct 21.2 L (35.0-46.0) % MCV 76.0 L (80.0-100.0) fL MCH 23.8 L (27.0-34.0) pg MCHC 31.3 L (32.0-36.0) % RDW (11.6-17.2) % Plt Count 120 L (150-450) th/mm3 [place] % (Auto) 10.9 H (0.0-8.0) % Eos % (Auto) 5.5 H (0.0-4.0) % Neut # (Auto) 1.5 L (1.8-7.7) th/mm3 Lymph # (Auto) 0.7 L (1.0-4.8) th/mm3 Potassium 3.1 L (3.5-5.1) meq/L Chloride 111 H (98-107) meq/L BUN 3 L (7-18) mg/dL Creatinine 0.44 L (0.50-1.00) mg/dL Random Glucose (74-106) mg/dL Calcium 7.8 L D (8.5-10.1) mg/dL AST (15-37) U/L ALT (10-53) U/L Alkaline Phosphatase (45-117) U/L Albumin (3.4-5.0) g/dL Urine Cocaine Screen (Neg) Short CBC 06/13/18 06/14/18 Range/Units 10:04 06:38 WBC 4.5 2.6 L (4.0-11.0) th/mm3 Hgb 8.2 L 6.6 L* (11.6-15.3) gm/dL Hct 26.6 L 21.2 L (35.0-46.0) % Plt Count 141 L 120 L (150-450) th/mm3 BMP 06/13/18 06/14/18 10:04 06:38 Sodium 139 142 Potassium 3.2 L 3.1 L Chloride 106 111 H Carbon Dioxide 24.5 24.4 BUN 5 L 3 L Creatinine 0.48 L 0.44 L Calcium 8.6 D 7.8 L D Liver Function 06/13/18 Range/Units 10:04 Total Bilirubin 0.2 (0.2-1.0) mg/dL AST 89 H (15-37) U/L ALT 81 H (10-53) U/L Alkaline Phosphatase 130 H (45-117) U/L Albumin 2.5 L (3.4-5.0) g/dL <Janis Christianson - 06/14/18 08:52> Physical Exam Vital signs: Vital Signs 06/13/18 16:15 06/13/18 20:00 06/13/18 20:15 Temperature 96.4 F L 98.3 F Pulse Rate 75 103 H 82 Respiratory Rate 16 18 16 Blood Pressure 108/67 130/88 114/72 Pulse Oximetry 99 100 06/13/18 20:28 06/14/18 00:00 06/14/18 04:00 Temperature 97.6 F 98.6 F Pulse Rate 82 75 70 Respiratory Rate 18 18 Blood Pressure 117/62 102/60 Pulse Oximetry 100 99 06/14/18 06:42 06/14/18 08:00 06/14/18 11:23 Temperature 99.1 F Pulse Rate 74 70 89 Respiratory Rate 16 18 16 Blood Pressure 118/76 103/65 109/72 Pulse Oximetry 98 100 Intake & Output 06/13/18 06/14/18 06/14/18 18:59 06:59 18:59 Intake Total 1250 / 1250 1100 / 1100 1070 / 1070 Balance 1250 / 1250 1100 / 1100 1070 / 1070 Weight 59 kg Intake: IV 1250 / 1250 1100 / 1100 1070 / 1070 NS Inj 1,000 ML @ 125 mls/hr IV 1250 / 1250 1000 / 1000 1000 / 1000 .CONT .Q8H [facility] Rx#:[id number] Cerebyx Inj 1,000 MGPE In NS 70 / 70 Inj 50 ML @ 280 mls/hr IV.SIG ONCE ONE Rx#:[id number] Rocephin Inj 1,000 MG In NS Inj 100 / 100 100 ML @ 200 mls/hr IV.SIG Q24H [facility] Rx#:[id number] Other: # Voids 1 3 Date of Last Bowel Movement 06/12/18 06/12/18 <Karla Snyder - 06/14/18 14:50> Vital Signs 06/13/18 09:14 06/13/18 10:49 06/13/18 12:00 Temperature 96.6 F L Pulse Rate 89 84 Respiratory Rate 20 Blood Pressure 109/62 Pulse Oximetry 99 98 06/13/18 16:15 06/13/18 20:00 06/13/18 20:15 Temperature 96.4 F L 98.3 F Pulse Rate 75 103 H 82 Respiratory Rate 16 18 16 Blood Pressure 108/67 130/88 114/72 Pulse Oximetry 99 100 06/13/18 20:28 06/14/18 00:00 06/14/18 04:00 Temperature 97.6 F 98.6 F Pulse Rate 82 75 70 Respiratory Rate 18 18 Blood Pressure 117/62 102/60 Pulse Oximetry 100 99 06/14/18 06:42 06/14/18 08:00 Temperature Pulse Rate 74 Respiratory Rate 16 16 Blood Pressure 118/76 Pulse Oximetry Intake & Output 06/13/18 06/14/18 06/14/18 18:59 06:59 18:59 Intake Total 1250 / 1250 1100 / 1100 Balance 1250 / 1250 1100 / 1100 Weight 59 kg Intake: IV 1250 / 1250 1100 / 1100 NS Inj 1,000 ML @ 125 mls/hr IV 1250 / 1250 1000 / 1000 .CONT .Q8H [facility] Rx#:[id number] Rocephin Inj 1,000 MG In NS Inj 100 / 100 100 ML @ 200 mls/hr IV.SIG Q24H [facility] Rx#:[id number] Other: # Voids 1 3 Date of Last Bowel Movement 06/12/18 06/12/18 <Janis Christianson - 06/14/18 08:52> Narrative: GENERAL: Sedated. In no acute distress SKIN: Warm and dry. HEAD: Atraumatic. Normocephalic. Scalp erythematous circular patches in the skin with no hair follicles EYES: Pale conjunctiva. ENT: No nasal bleeding or discharge. Mucous membranes pink and moist. NECK: Trachea midline. No JVD. CARDIOVASCULAR: Regular rate and rhythm. RESPIRATORY: No accessory muscle use. Clear to auscultation. Breath sounds equal bilaterally. GASTROINTESTINAL: Abdomen soft, nondistended and mildly tender to palpation in the suprapubic region. Improved from prior exam. Hepatic and splenic margins not palpable. MUSCULOSKELETAL: Extremities without clubbing, cyanosis, or edema. No obvious deformities. NEUROLOGICAL: Awake and alert. No obvious cranial nerve deficits. Motor grossly within normal limits. PSYCHIATRIC: Appropriate mood and affect; insight and judgment normal. <Janis Christianson - 06/14/18 13:48> - Urinary Catheter Management Straight Cath placed during this visit: no <Karla Snyder - 06/14/18 14:50> yes <Janis Christianson - 06/14/18 13:51> Reason for continuing: Not indwelling catheter <Janis Christianson - 06/14/18 08: 52> Insertion date: 06/11/18 <Janis Christianson - 06/14/18 08:52> Insertion time: 19:35 <Janis Christianson - 06/14/18 08:52> Assessment and Plan - Assessment (1) Hemoglobin drop Code(s): R71.0 - Precipitous drop in hematocrit Status: Acute (2) UTI (urinary tract infection) Code(s): N39.0 - Urinary tract infection, site not specified Status: Acute (3) Seizure Code(s): R56.9 - Unspecified convulsions Status: Acute (4) Hypokalemia Code(s): E87.6 - Hypokalemia Status: Acute (5) Elevated alanine aminotransferase (ALT) level Code(s): R74.0 - Nonspecific elevation of levels of transaminase and lactic acid dehydrogenase [LDH] Status: Acute (6) Abdominal pain Code(s): R10.9 - Unspecified abdominal pain Status: Acute (7) Substance abuse Code(s): F19.10 - Other psychoactive substance abuse, uncomplicated Status: Acute (8) DVT prophylaxis Status: Acute (9) Nutrition, metabolism, and development symptoms Code(s): R63.8 - Other symptoms and signs concerning food and fluid intake Status: Acute <Karla Snyder - 06/14/18 14:50> (1) Hemoglobin drop Code(s): R71.0 - Precipitous drop in hematocrit Status: Acute Plan: Hemoglobin dropped from 8.2 to 6.6 today. 2 units RBCs transfused. Concerning for bleed, will empirically start on Protonix. Repeat Hemoccult CT of head without contrast. If CT of head without contrast is normal consider CT abdomen of pelvis with contrast Trend H&H. (2) UTI (urinary tract infection) Code(s): N39.0 - Urinary tract infection, site not specified Status: Acute Plan: Per ED note, 1 week of fevers and bilateral flank pain. UA positive for Nitrites and large amounts of leukocyte esterase with high WBC. Concerning for UTI versus pyelonephritis. Urine culture growing pansensitive E. coli. Pansensitive Will switch from Rocephin 1 gram daily (2 days total) to Ciprofloxacin 500 mg BID for 8 more days. (3) Seizure Code(s): R56.9 - Unspecified convulsions Status: Acute Plan: Patient has history of seizures on Keppra 500 mg twice daily. Patient noncompliant on medication for the past couple weeks. Witnessed seizure in the emergency room today. Given 2 milligrams of Ativan and is currently post ictal. Neurology consulted. Appreciate recommendations. EEG ordered and was normal Resume home Keppra 500 mg p.o. twice daily. 1000 mg keppra given in ED. Nursing staff reported another seizure that resolved after 1 dose of Ativan on the afternoon of 06/12. MDs were not notified. 06/14: 2 episodes of seizures reported at 8 PM last night at 6 AM this morning. MDs not notified. 2 mg of Ativan given x2. Patient postictal. Nursing communications added to call MD when seizure occurs. Restriction to visitors added. 1 g fosphenytoin IV given, increase Keppra to 500mg, 3 times daily, continuous telemetry: Per neurology recommendations. Repeat UDS positive for cocaine but negative for benzodiazepines status post 2 mg of Ativan given. Concerning. Continue to monitor. Repeat calcium and magnesium ordered. Follow-up. (4) Hypokalemia Code(s): E87.6 - Hypokalemia Status: Acute Plan: Hypokalemic at 3.1 this morning 40 M EQ's replaced Repeat potassium. (5) Elevated alanine aminotransferase (ALT) level Code(s): R74.0 - Nonspecific elevation of levels of transaminase and lactic acid dehydrogenase [LDH] Status: Acute Plan: Elevated liver enzymes on admission Repeat hepatic function ordered. Continue to monitor. Hepatitis panel negative (6) Abdominal pain Code(s): R10.9 - Unspecified abdominal pain Status: Acute Plan: Patient had abdominal pain on admission and had reported some vaginal bleeding that was not consistent with her normal cycle CT abdomen showed minimal free fluid in the right paracolic gutter region, nonspecific 0.9 cm hypodensity in the liver Pelvic exam on 06/12 did not show any signs of bleeding but did show some thin odorous vaginal discharge GC chlamydia are ordered and negative Abdominal pain improved on 06/13, continue to monitor (7) Substance abuse Code(s): F19.10 - Other psychoactive substance abuse, uncomplicated Status: Acute Plan: History of substance abuse. UDS positive for cocaine on admission Continue to monitor for signs of withdrawal. (8) DVT prophylaxis Status: Acute Plan: SCDs (9) Nutrition, metabolism, and development symptoms Code(s): R63.8 - Other symptoms and signs concerning food and fluid intake Status: Acute Plan: Fluids: maintenance fluids NS at 90 mls/hour Electrolytes: Monitor and replete as needed. Nutrition: Regular diet. <Janis Christianson - 06/14/18 13:51> - Assessment and Plan 32-year-old with past medical history of seizures presents the emergency room for 1 week of fever, chills and bilateral flank pain. Urine culture positive for large leukocyte esterase and high WBCs concerning for pyelonephritis. Patient had a witnessed seizure in the emergency room for 20 seconds and was given 2 mg of Ativan. Patient admitted for UTI treatment and seizure workup. Currently being treated for UTI with Rocephin, neurology on board for Keppra dosing. Patient had 2 witnessed seizures, Keppra increased to 500 3 times daily , Rocephin changed to ciprofloxacin. Hemoglobin dropped from 8.2 to 6.6, 2 units of red blood cells ordered. <Janis Christianson - 06/14/18 10:59> - Attending Attestation Patient seen and examined and discussed with the resident team. Agree with the assessment and plan <Karla Snyder - 06/14/18 14:50>
[2018-06-14] MEDS ORDERED: Sodium Chlor 0.9% Inj 250 ML IV.SIG SCH (09:00)
[2018-06-14] MEDS: levETIRAcetam 500 MG Tablet PO SCH ×3 (09:12→17:06)
[2018-06-14] MEDS: Senna/Docusate Sodium 8.6/50 MG Tablet PO SCH (09:30)
[2018-06-14] MEDS ORDERED: Fosphenytoin Inj 1,000 MGPE in Sodium Chlor 0.9% Inj 50 ML IV.SIG ONE (11:00)
[2018-06-14 11:25] VITALS: RESP 16; O2SAT 100
[2018-06-14] MEDS ORDERED: Ciprofloxacin 500 MG Tablet PO SCH (11:30)
[2018-06-14 12:15] LABS: Hematocrit 23.5 % (35.0-46.0); Hemoglobin 7.3 gm/dL (11.6-15.3)
[2018-06-14 12:38] LABS: Magnesium 2.2 mg/dL (1.5-2.5)
[2018-06-14 12:40] LABS: Total Protein 6.2 g/dL (6.4-8.2)
[2018-06-14 13:11] LABS: Calcium 7.7 mg/dL (8.5-10.1)
[2018-06-14 13:12] LABS: Albumin 2.3 g/dL (3.4-5.0)
[2018-06-14 13:15] LABS: Calcium-Albumin Corrected 9.1 mg/dL (8.5-10.1)
[2018-06-14 17:12] VITALS: PULSE 81
[2018-06-14 18:31] VITALS: BP 125/72; TEMP 99
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
--- NOTE | 2018-06-15 10:02 | P.DS ---
Date of admission: 06/11/18 22:49 Primary care physician: UNKNOWN Brief History from admission: Unable to obtain full HPI due to patient being sedated status post 2 mg of Ativan given for a witnessed seizure in the emergency department. Seizure lasted for about 20 seconds per nurse. Patient is currently postictal. Sister was at bedside, when questioned about patient's health records. Sister states that she is homeless and has been homeless for the past 7-8 months. She started using crack cocaine in January. Unsure of what other drugs she uses. She has not seen in the last 3-4 weeks. She just got a call today saying that she was in the hospital due to to having fever. Her only past medical history that she is aware of is that she has seizures and is on Keppra. Per ED note, had complaints of a fever for 1 week with bilateral flank pain with runny nose and congestion and productive cough. Temp in ED was 101.6. She denied IV drug use and reports not taking her seizure medication for the past couple weeks. She has a past medical history of asthma. DS: Diagnosis - Discharge Diagnosis (1) Hemoglobin drop Status: Acute (2) UTI (urinary tract infection) Status: Acute (3) Seizure Status: Acute (4) Hypokalemia Status: Acute (5) Elevated alanine aminotransferase (ALT) level Status: Acute (6) Abdominal pain Status: Acute (7) Substance abuse Status: Acute (8) DVT prophylaxis Status: Acute (9) Nutrition, metabolism, and development symptoms Status: Resolved DS: Summary Hospital Course: 32-year-old with past medical history of seizures presented to the emergency room for 1 week of fever, chills and bilateral flank pain. Urine culture positive for large leukocyte esterase and high WBCs concerning for pyelonephritis. Patient had a witnessed seizure in the emergency room for 20 seconds and was given 2 mg of Ativan. Patient admitted for UTI treatment and seizure workup. Was treated for UTI with Rocephin. Neurology consulted for Keppra dosing. Patient had 2 witnessed seizures by RNs during hospital stay, Keppra increased to 500 3 times daily, Rocephin changed to ciprofloxacin. Hemoglobin dropped from 8.2 to 6.6, 2 units of red blood cells ordered. Patient had visitors restricted due to the thought that visitors could be smuggling in drugs to the patient and causing her seizures. Her UDS was positive x2 for cocaine. During her blood transfusion, patient went into a seizure and IV access was lost, Dilantin 150 mg 3 times daily was added to her seizure regimen. IV access was regained and blood transfusions continued. Since patient was not allowed visitors, patient became upset and aggravated. She signed the forms to leave AGAINST MEDICAL ADVICE. The residents on the night team explained the risks and benefits of leaving AGAINST MEDICAL ADVICE. Patient voiced understanding and left against medical advice. - Time Spent with Patient Total time spent providing and/or coordinating discharge services: Less than 30 minutes - Quality: VTE Deep Vein Thrombosis/Pulmonary Embolism Present on Admission: No Exam Vital signs: Vital Signs 06/14/18 11:23 06/14/18 14:51 06/14/18 15:03 Temperature 98.4 F 98.2 F Pulse Rate 89 82 84 Respiratory Rate 16 16 16 Blood Pressure 109/72 102/63 113/70 Pulse Oximetry 100 100 100 06/14/18 15:33 06/14/18 16:39 06/14/18 17:51 Temperature 98.4 F 99 F Pulse Rate 81 97 H 81 Respiratory Rate 16 16 Blood Pressure 114/76 125/72 Pulse Oximetry 100 Intake & Output 06/14/18 06/15/18 06/15/18 18:59 06:59 18:59 Intake Total 2470 / 2470 Output Total 1200 / 1200 Balance 1270 / 1270 Intake: IV 2069 / 2069 NS Inj 1,000 ML @ 125 mls/hr IV 1999 / 1999 .CONT .Q8H [facility] Rx#:[id number] Cerebyx Inj 1,000 MGPE In NS 70 / 70 Inj 50 ML @ 280 mls/hr IV.SIG ONCE ONE Rx#:[id number] Intake (Blood Product) Amt 400 / 400 Rbc As-3 Leukoreduced Unit 400 / 400 [id number] Output: Urine 1200 / 1200 Other: Date of Last Bowel Movement 06/12/18 Narrative: GENERAL: Sedated. In no acute distress SKIN: Warm and dry. HEAD: Atraumatic. Normocephalic. Scalp erythematous circular patches in the skin with no hair follicles EYES: Pale conjunctiva. ENT: No nasal bleeding or discharge. Mucous membranes pink and moist. NECK: Trachea midline. No JVD. CARDIOVASCULAR: Regular rate and rhythm. RESPIRATORY: No accessory muscle use. Clear to auscultation. Breath sounds equal bilaterally. GASTROINTESTINAL: Abdomen soft, nondistended and mildly tender to palpation in the suprapubic region. Improved from prior exam. Hepatic and splenic margins not palpable. MUSCULOSKELETAL: Extremities without clubbing, cyanosis, or edema. No obvious deformities. NEUROLOGICAL: Awake and alert. No obvious cranial nerve deficits. Motor grossly within normal limits. PSYCHIATRIC: Appropriate mood and affect; insight and judgment normal. Results Procedures completed during hospitalization: None Labs on day of discharge: Labs from last 24 hours 06/14/18 06/14/18 06/14/18 11:36 11:36 11:36 Hgb 7.3 L Hct 23.5 L Potassium 3.4 L Calcium 7.7 L Calcium Adj for Albumin 9.1 Magnesium 2.2 Total Bilirubin 0.2 Direct Bilirubin 0.1 Indirect Bilirubin 0.1 AST 40 H ALT 77 H Alkaline Phosphatase 119 H Total Protein 6.2 L Albumin 2.3 L Blood Type Blood Type Recheck Antibody Screen MTS Gel Crossmatch 06/14/18 11:36 Hgb Hct Potassium Calcium Calcium Adj for Albumin Magnesium Total Bilirubin Direct Bilirubin Indirect Bilirubin AST ALT Alkaline Phosphatase Total Protein Albumin Blood Type O Negative Blood Type Recheck Required Antibody Screen Negative MTS Gel Crossmatch See Detail Preliminary micro results at discharge 06/11/18 19:35 Aerobic Blood Culture - Preliminary Blood - Peripheral No growth in 3 days Anaerobic Blood Culture - Preliminary No growth in 3 days 06/11/18 19:40 Aerobic Blood Culture - Preliminary Blood - Peripheral No growth in 3 days Anaerobic Blood Culture - Preliminary No growth in 3 days - Impressions ITS Impressions Head CT 06/11/18 19:04 CONCLUSION: No acute intracranial abnormality. Chronic appearing paranasal sinusitis, worse than before. . Abdomen/Pelvis CT 06/12/18 00:00 CONCLUSION: 1. Minimal free fluid in the right paracolic gutter region. The cause of this precluded is not seen. 2. Nonspecific 0.9 cm hypodensity seen in the liver. Statistically, this likely represents a cyst or hemangioma. Head MRI 06/12/18 08:51 CONCLUSION: 1. Normal MRI of the brain. 2. Chronic paranasal sinus disease. Chest X-Ray 06/12/18 10:14 CONCLUSION: No acute cardiopulmonary process. Discharge Plan - Discharge Disposition Patient Disposition: 07 Against Medical Advice - Discharge Condition Condition: Stable - Discharge Order Discharge Orders: AMA Discharge (Routine); Ordered 06/14/18 Ordered By: Moni Gonzales - Physicians Team Primary Care Provider: UNKNOWN, Attending Provider: Karla Snyder Other Providers: Yogesh Mejia MD
== END 2018-06-14 19:18 | disposition left against medical advice (07) ==
LOC: NEPD 17:34 → NEDA 23:35 → NEDH 06-12 03:53 → N05 06-12 12:41
PROVIDERS: ADMIT Family Medicine; ATTEND Family Medicine